=== PATIENT | male | born 1960 | race Caucasian/White ===

== ENCOUNTER 2016-02-13 12:34 | Inpatient (IN) | payer MEDICARE, OTHER ==
--- NOTE | 2016-02-13 13:17 | ED ---
Arrhythmia/Palpitations HPI - General Chief Complaint: Arrhythmia/Palpitations Stated Complaint: Shock from defibrillator Time Seen by Provider: 02/13/16 12:53 Source: patient, RN notes reviewed Mode of arrival: ambulatory - History of Present Illness Initial Comments: This is a 55-year-old male with a history of heart disease and a defibrillator who states his defibrillator went off suddenly this morning. He had no premonition no dizziness fevers chills nausea vomiting sweats he states he also has been having left ear pain and goes to his jaw. The past 2 days. He has a slight cough. He also states that his defibrillator also went off 8 days ago. After the discharge a days ago he did not seek medical evaluation. He states he only other time it went off was right after he got in 2012 at that time he had be readjusted. - Related Data Home Medications Medication Instructions Recorded Confirmed Aspirin 325 mg PO DAILY 06/23/13 02/13/16 Digoxin [Lanoxin] 125 mcg PO QAM 06/23/13 02/13/16 Furosemide [Lasix] 20 mg PO QAM 06/23/13 02/13/16 HYDROcodone/APAP 7.5-325MG [[place] 1 tab PO QID PRN 06/23/13 02/13/16 7.5-325] Metoprolol Tartrate [Lopressor] 150 mg PO BID 06/23/13 02/13/16 Nitroglycerin Sl Tabs [Nitrostat] 0.4 mg SUBLINGUAL Q5M PRN 06/23/13 02/13/16 Omeprazole [PriLOSEC] 20 mg PO BID 06/23/13 02/13/16 Potassium Chloride [K-Tab ER] 10 meq PO QAM 06/23/13 02/13/16 Gabapentin [Neurontin] 300 mg PO QID 10/12/15 02/13/16 Isosorbide Mononitrate ER [Imdur] 30 mg PO QAM 10/12/15 02/13/16 tiZANidine [Zanaflex] 2 mg PO TID 10/12/15 02/13/16 Ibuprofen [Motrin] 400 mg PO Q6HR PRN 02/13/16 02/13/16 Lisinopril [Zestril] 5 mg PO DAILY 02/13/16 02/13/16 Rosuvastatin Calcium [Crestor] 40 mg PO HS 02/13/16 02/13/16 Allergies Allergy/AdvReac Type Severity Reaction Status Date / Time ranitidine HCl [From Zantac] Allergy Itching Verified 02/13/16 13:06 Review of Systems ROS Statement: Those systems with pertinent positive or pertinent negative responses have been documented in the HPI. ROS Other: All systems not noted in ROS Statement are negative. Past Medical History Past Medical History: GERD/Reflux, Musculoskeletal Disorder, Osteoarthritis (OA) Additional Past Medical History / Comment(s): DDD, CHRONIC BACK PAIN, CAN'T WALK LONG DISTANCES. History of Any Multi-Drug Resistant Organisms: None Reported Past Surgical History: AICD, Heart Catheterization With Stent Additional Past Surgical History / Comment(s): 10/20/15 posterior lateral decompression and fusion transforaminal lumbar interbody fusion L4-5, L5- [id number] surgical hx: eye surg (CROSSED EYED). AICD: [employer], MOD#E141 , SE#[id number]. Past Anesthesia/Blood Transfusion Reactions: No Reported Reaction Date of Last Stent Placement:: 2011 Type of Cardiac Device: AICD Device Placement Date:: 2012 Past Psychological History: No Psychological Hx Reported Additional Psychological History / Comment(s): Pt has a crow and grandson staying with him temporarily. He does not drive, he has friends and family take him to appts. He is otherwise indepedent. Smoking Status: Current every day smoker Past Alcohol Use History: Occasional Additional Past Alcohol Use History / Comment(s): SMOKED FOR 40 YRS, 1PPD Past Drug Use History: None Reported - Past Family History Mother Family Medical History: No Reported History Additional Family Medical History / Comment(s): Mother of a brain aneurysm rupture in her 50's Father Family Medical History: CVA/TIA Additional Family Medical History / Comment(s): Father of a CVA. General Exam - General Exam Comments Initial Comments: This is a well-developed well-nourished awake alert oriented 3 male General appearance: alert, in no apparent distress Head exam: Present: atraumatic, normocephalic, normal inspection Eye exam: Present: normal appearance, PERRL, EOMI. Absent: scleral icterus, conjunctival injection, periorbital swelling ENT exam: Present: mucous membranes moist, other (Evaluation of the left ear reveals some fluid behind the left tympanic membrane right one appears be within normal limits.) Neck exam: Present: normal inspection. Absent: tenderness, meningismus, lymphadenopathy Respiratory exam: Present: normal lung sounds bilaterally. Absent: respiratory distress, wheezes, rales, rhonchi, stridor Cardiovascular Exam: Present: regular rate, normal rhythm, normal heart sounds. Absent: systolic murmur, diastolic murmur, rubs, gallop, clicks GI/Abdominal exam: Present: soft, normal bowel sounds. Absent: distended, tenderness, guarding, rebound, rigid Extremities exam: Present: normal inspection, full ROM, normal capillary refill. Absent: tenderness, pedal edema, joint swelling, calf tenderness Back exam: Present: normal inspection Neurological exam: Present: alert, oriented X3, CN II-XII intact Psychiatric exam: Present: normal affect, normal mood Skin exam: Present: warm, dry, intact, normal color. Absent: rash Course Vital Signs 02/13/16 02/13/16 02/13/16 12:41 12:54 13:28 Temperature 98.7 F Pulse Rate 71 77 Pulse Rate [ 101 H Agency Cashier ] Respiratory 18 Rate Blood Pressure 135/93 159/88 O2 Sat by Pulse 97 Oximetry 02/13/16 02/13/16 02/13/16 13:32 14:02 14:32 Temperature Pulse Rate 94 100 84 Pulse Rate [ Agency Cashier ] Respiratory Rate Blood Pressure 178/119 130/62 140/78 O2 Sat by Pulse 98 96 97 Oximetry 02/13/16 15:32 Temperature Pulse Rate 90 Pulse Rate [ Agency Cashier ] Respiratory Rate Blood Pressure 133/89 O2 Sat by Pulse 97 Oximetry - Reevaluation(s) Reevaluation #1: 02/13/16 16:17 The patient was noted to be still in atrial fibrillation. He did receive an extra Lanoxin. The patient's defibrillator was interrogated. There was evidence that he did have a cardioversion done on new years which he converted back to normal sinus rhythm this time it did not. Reevaluation #2: 02/13/16 16:17 I did discuss the findings with the defibrillator sterile technician as well as with Dr. Sotelo. Patient be placed on a Cordarone drip after bolus. Will be admitted. I did discuss the findings with . EKG Findings - EKG Results: EKG: interpreted by ERMD (No definite acute changes. The rate was 111 QRS of 110 daily since QTC of 352/478. Atrial fibrillation) Medical Decision Making - Lab Data Result diagrams: 02/13/16 13:25 02/13/16 13:25 Lab Results 02/13/16 02/13/16 02/13/16 Range/Units 13:25 13:25 13:25 WBC 10.8 H (3.8-10.6) k/uL RBC 5.07 (4.30-5.90) m/uL Hgb 15.8 (13.0-17.5) gm/dL Hct 47.9 (39.0-53.0) % MCV 94.3 (80.0-100.0) fL MCH 31.2 (25.0-35.0) pg MCHC 33.1 (31.0-37.0) g/dL RDW 14.1 (11.5-15.5) % Plt Count 213 (150-450) k/uL Neutrophils % 58 % Lymphocytes % 29 % Monocytes % 6 % Eosinophils % 4 % Basophils % 0 % Neutrophils # 6.3 (1.3-7.7) k/uL Lymphocytes # 3.1 (1.0-4.8) k/uL Monocytes # 0.7 (0-1.0) k/uL Eosinophils # 0.4 (0-0.7) k/uL Basophils # 0.0 (0-0.2) k/uL PT (9.0-12.0) sec INR (<1.1) APTT (22.0-30.0) sec Sodium 144 (137-145) mmol/L Potassium 4.3 (3.5-5.1) mmol/L Chloride 110 H (98-107) mmol/L Carbon Dioxide 25 (22-30) mmol/L Anion Gap 9 mmol/L BUN 11 (9-20) mg/dL Creatinine 0.90 (0.66-1.25) mg/dL Est GFR (MDRD) Af Amer >60 (>60 ml/min/1.73 sqM) Est GFR (MDRD) Non-Af >60 (>60 ml/min/1.73 sqM) Glucose 105 H (74-99) mg/dL Calcium 9.4 (8.4-10.2) mg/dL Magnesium 1.7 (1.6-2.3) mg/dL Total Bilirubin 0.6 (0.2-1.3) mg/dL AST 19 (17-59) U/L ALT 34 (21-72) U/L Alkaline Phosphatase 157 H (38-126) U/L Total Creatine Kinase 95 (55-170) U/L CK-MB (CK-2) 1.1 (0.0-2.4) ng/mL CK-MB (CK-2) Rel Index 1.2 Troponin I 0.017 (0.000-0.034) ng/mL Total Protein 6.5 (6.3-8.2) g/dL Albumin 3.7 (3.5-5.0) g/dL Digoxin <0.4 ng/mL 02/13/16 Range/Units 13:25 WBC (3.8-10.6) k/uL RBC (4.30-5.90) m/uL Hgb (13.0-17.5) gm/dL Hct (39.0-53.0) % MCV (80.0-100.0) fL MCH (25.0-35.0) pg MCHC (31.0-37.0) g/dL RDW (11.5-15.5) % Plt Count (150-450) k/uL Neutrophils % % Lymphocytes % % Monocytes % % Eosinophils % % Basophils % % Neutrophils # (1.3-7.7) k/uL Lymphocytes # (1.0-4.8) k/uL Monocytes # (0-1.0) k/uL Eosinophils # (0-0.7) k/uL Basophils # (0-0.2) k/uL PT 10.0 (9.0-12.0) sec INR 1.0 (<1.1) APTT 24.9 (22.0-30.0) sec Sodium (137-145) mmol/L Potassium (3.5-5.1) mmol/L Chloride (98-107) mmol/L Carbon Dioxide (22-30) mmol/L Anion Gap mmol/L BUN (9-20) mg/dL Creatinine (0.66-1.25) mg/dL Est GFR (MDRD) Af Amer (>60 ml/min/1.73 sqM) Est GFR (MDRD) Non-Af (>60 ml/min/1.73 sqM) Glucose (74-99) mg/dL Calcium (8.4-10.2) mg/dL Magnesium (1.6-2.3) mg/dL Total Bilirubin (0.2-1.3) mg/dL AST (17-59) U/L ALT (21-72) U/L Alkaline Phosphatase (38-126) U/L Total Creatine Kinase (55-170) U/L CK-MB (CK-2) (0.0-2.4) ng/mL CK-MB (CK-2) Rel Index Troponin I (0.000-0.034) ng/mL Total Protein (6.3-8.2) g/dL Albumin (3.5-5.0) g/dL Digoxin ng/mL - Radiology Data Radiology results: report reviewed (X-rays were reviewed no acute findings.), image reviewed Critical Care Time Critical Care Time: Yes Critical Care Time: 39 minutes of time which included initial history physical lab and x-ray orders. Reevaluation the patient several occasions. Discussion with the defibrillator sterile technician as well as discussion with the admitting physician and the field software engineer. Initial admission orders and documentation the above. Disposition Clinical Impression: Atrial fibrillation, rapid, Defibrillator discharge Disposition: ADMITTED IP TO THIS HOSP Condition: Stable
--- NOTE | 2016-02-13 13:43 | XR ---
EXAMINATION TYPE: XR chest 2V DATE OF EXAM: 02/13/2016 1:37 PM COMPARISON: 09/28/2015 HISTORY: Dysrhythmia FINDINGS: The lungs are clear and there is no pneumothorax, pleural effusion, or focal pneumonia. Cardiac juanis ce noted. There is mild cardiomegaly. Hyperinflation suggests COPD. Degenerative change of the spine noted. Tiny calcified granuloma suspected on the lateral view overlying the heart. No overt failure. Arthropathy of the shoulder. IMPRESSION: 1. COPD
[2016-02-13 13:47] LABS: ALT 34 U/L (21-72); AST 19 U/L (17-59); Alkaline Phosphatase 157 U/L (38-126); Anion Gap 9 mmol/L; Blood Urea Nitrogen 11 mg/dL (9-20); Calcium 9.4 mg/dL (8.4-10.2); Carbon Dioxide 25 mmol/L (22-30); Chloride 110 mmol/L (98-107); Digoxin <0.4 ng/mL; Glucose 105 mg/dL (74-99); Magnesium 1.7 mg/dL (1.6-2.3); Non-African American GFR(MDRD) >60 (>60 ml/min/1.73 sqM); Potassium 4.3 mmol/L (3.5-5.1); Sodium 144 mmol/L (137-145); Total Bilirubin 0.6 mg/dL (0.2-1.3); Total Protein 6.5 g/dL (6.3-8.2)
[2016-02-13 13:48] LABS: Basophils % (A) 0 %; CH 31.6; CHCM 33.6; Eosinophils # (A) 0.4 k/uL (0-0.7); Eosinophils % (A) 4 %; HCT 47.9 % (39.0-53.0); HDW 2.59; HGB 15.8 gm/dL (13.0-17.5); Luc # (Auto) 0.33; Luc % (Auto) 3; Lymphocytes # (A) 3.1 k/uL (1.0-4.8); Lymphocytes % (A) 29 %; MCH 31.2 pg (25.0-35.0); MCHC 33.1 g/dL (31.0-37.0); MCV 94.3 fL (80.0-100.0); Mean Platelet Volume 9.7; Monocytes # (A) 0.7 k/uL (0-1.0); Monocytes % (A) 6 %; Neutrophils # (A) 6.3 k/uL (1.3-7.7); Neutrophils % (A) 58 %; RBC 5.07 m/uL (4.30-5.90); RDW 14.1 % (11.5-15.5); WBC 10.8 k/uL (3.8-10.6); WBC (Perox) 11.25
[2016-02-13 13:53] LABS: Partial Thromboplastin Time 24.9 sec (22.0-30.0)
[2016-02-13 14:05] LABS: Creatine Kinase MB 1.1 ng/mL (0.0-2.4); Troponin I 0.017 ng/mL (0.000-0.034)
[2016-02-13] MEDS ORDERED: DIGOXIN 250 MCG/ML 2 ML AMP IVP ONE (14:55)
[2016-02-13] MEDS ORDERED: KETOROLAC 30 MG/ML 1 ML VIAL IVP STA (15:21)
[2016-02-13] MEDS ORDERED: AMIODARONE 450 MG in DEXTROSE 5% IN WATER 250 ML IV ONE ×2 (16:13)
[2016-02-13] MEDS ORDERED: DEXTROSE 5% IN WATER 100 ML with AMIODARONE 150 MG IV ONE (16:13)
[2016-02-13] MEDS ORDERED: NALOXONE 0.4 MG/ML 1 ML VIAL IV PRN (16:34)
[2016-02-13] MEDS ORDERED: NITROGLYCERIN SL TABS 0.4 MG TAB SUBLINGUAL PRN (16:37)
[2016-02-13] MEDS ORDERED: HEPARIN SODIUM,PORCINE 5,000 UNIT/ML 1 ML VIAL IV ONE (16:38)
[2016-02-13] MEDS ORDERED: HEPARIN SODIUM,PORCINE/D5W PMX 25,000 UNIT in DEXTROSE/WATER 1 500ML.BAG IV SCH (16:45)
[2016-02-13] MEDS: SODIUM CHLORIDE 0.9% 1,000 ML IV SCH (17:16)
[2016-02-13 18:43] VITALS: BMI 26.4
[2016-02-13] MEDS: PANTOPRAZOLE 40 MG TABLET PO SCH (19:05)
[2016-02-13] MEDS: GABAPENTIN 300 MG CAP PO SCH ×2 (19:05→20:23)
[2016-02-13] MEDS: ATORVASTATIN 80 MG TAB PO SCH (20:23)
[2016-02-13] MEDS: METOPROLOL TARTRATE 50 MG TAB PO SCH (20:23)
[2016-02-13 21:17] LABS: Creatine Kinase MB 1.2 ng/mL (0.0-2.4); Troponin I 0.023 ng/mL (0.000-0.034)
[2016-02-14] MEDS: HYDROcodone/APAP 7.5-325MG 1 EACH TAB PO PRN ×2 (00:30→15:03)
[2016-02-14] MEDS: AMIODARONE 450 MG in DEXTROSE 5% IN WATER 250 ML IV SCH ×4 (02:04→17:02)
[2016-02-14 02:21] LABS: Creatine Kinase MB 1.1 ng/mL (0.0-2.4); Troponin I 0.021 ng/mL (0.000-0.034)
[2016-02-14] MEDS: PANTOPRAZOLE 40 MG TABLET PO SCH ×2 (06:30→17:09)
[2016-02-14] MEDS ORDERED: HEPARIN SODIUM,PORCINE 5,000 UNIT/ML 1 ML VIAL IV PRN (06:59)
--- NOTE | 2016-02-14 08:57 | P.CRDCN ---
History of Present Illness Consult date: 02/14/16 Requesting physician: Abdi Leblanc Consult reason: atrial fibrillation Chief complaint: AICD discharge History of present illness: This is a 55-year-old gentleman who follows regularly with Dr. Sotelo in the office. He has a known history of coronary artery disease with prior circumflex stent in 2007 ,RCA stent in 2007, circumflex stent in 2009 , and RCA stent in 2011, most recent cardiac catheterization was performed in June 2013 at that time patient was found to have moderate disease in the mid LAD at the origin of the diagonal and the diagonal itself shows 95% stenosis. The stent in the right coronary artery was patent circumflex free of any occlusive disease and maximum medical therapy was advised at that time. If the patient continued to have symptoms revascularization at that time would be considered. History also of hypertension, hyperlipidemia, ischemic cardio myopathy with prior AICD implantation. The patient presents to the hospital on this occasion following discharge from his AICD. Patient states he was standing up just making some soup and without warning the AICD fired. He does state that on Sunday of last week the AICD discharged as well. The patient has a [employer]'s device, device was interrogated which revealed several episodes of nonsustained ventricular tachycardia and ventricular fibrillation with several ATP therapies., It also shows that the patient received AICD shock February 04February 12 at 1:00pm. Laboratory data on admission was reviewed, WBC 10.8, potassium 4.3, magnesium level I.7. Troponins 0.017, 0.023, 0.021. EKG on admission here showed atrial fibrillation with a rapid ventricular response, patient was initiated on IV amiodarone and IV heparin. A. fib is new for the patient. Overall the patient states he's been doing quite well at home, he had a back surgery performed in October of last year and has been doing well from that standpoint as well. He denies any recent chest discomfort, breathing has been stable, no palpitations. Past Medical History Past Medical History: GERD/Reflux, Musculoskeletal Disorder, Osteoarthritis (OA) Additional Past Medical History / Comment(s): DDD, CHRONIC BACK PAIN, CAN'T WALK LONG DISTANCES. History of Any Multi-Drug Resistant Organisms: None Reported Past Surgical History: AICD, Heart Catheterization With Stent Additional Past Surgical History / Comment(s): 10/20/15 posterior lateral decompression and fusion transforaminal lumbar interbody fusion L4-5, L5- [id number] surgical hx: eye surg (CROSSED EYED). AICD: [employer], MOD#E141 , SE#[id number]. Past Anesthesia/Blood Transfusion Reactions: No Reported Reaction Date of Last Stent Placement:: 2011 Type of Cardiac Device: AICD Device Placement Date:: 2012 Past Psychological History: No Psychological Hx Reported Additional Psychological History / Comment(s): Pt has a crow and grandson staying with him temporarily. He does not drive, he has friends and family take him to appts. He is otherwise indepedent. Smoking Status: Current every day smoker Past Alcohol Use History: Occasional Additional Past Alcohol Use History / Comment(s): SMOKED FOR 40 YRS, 1PPD Past Drug Use History: None Reported - Past Family History Mother Family Medical History: No Reported History Additional Family Medical History / Comment(s): Mother of a brain aneurysm rupture in her 50's Father Family Medical History: CVA/TIA Additional Family Medical History / Comment(s): Father of a CVA. Medications and Allergies Home Medications Medication Instructions Recorded Confirmed Type Aspirin 325 mg PO DAILY 06/23/13 02/13/16 History Digoxin [Lanoxin] 125 mcg PO QAM 06/23/13 02/13/16 History Furosemide [Lasix] 20 mg PO QAM 06/23/13 02/13/16 History HYDROcodone/APAP 7.5-325MG [[place] 1 tab PO QID PRN 06/23/13 02/13/16 History 7.5-325] Metoprolol Tartrate [Lopressor] 150 mg PO BID 06/23/13 02/13/16 History Nitroglycerin Sl Tabs [Nitrostat] 0.4 mg SUBLINGUAL Q5M PRN 06/23/13 02/13/16 History Omeprazole [PriLOSEC] 20 mg PO BID 06/23/13 02/13/16 History Potassium Chloride [K-Tab ER] 10 meq PO QAM 06/23/13 02/13/16 History Gabapentin [Neurontin] 300 mg PO QID 10/12/15 02/13/16 History Isosorbide Mononitrate ER [Imdur] 30 mg PO QAM 10/12/15 02/13/16 History tiZANidine [Zanaflex] 2 mg PO TID 10/12/15 02/13/16 History Ibuprofen [Motrin] 400 mg PO Q6HR PRN 02/13/16 02/13/16 History Lisinopril [Zestril] 5 mg PO DAILY 02/13/16 02/13/16 History Rosuvastatin Calcium [Crestor] 40 mg PO HS 02/13/16 02/13/16 History Allergies Allergy/AdvReac Type Severity Reaction Status Date / Time ranitidine HCl [From Zantac] Allergy Itching Verified 02/13/16 13:06 Physical Exam Vitals: Vital Signs Temp Pulse Pulse Resp BP BP Pulse Ox 02/14/16 04:00 67 16 139/84 95 02/14/16 00:00 61 16 134/73 97 02/13/16 20:00 98.5 F 88 16 130/79 98 02/13/16 18:28 97.4 F L 60 16 137/71 97 02/13/16 17:47 98.1 F 71 18 124/57 96 Intake and Output 02/13/16 02/14/16 02/14/16 22:59 06:59 14:59 Intake Total 240 1022.664 Output Total 300 500 Balance -60 522.664 Intake: Intake, IV Titration 482.664 Amount Amiodarone 450 mg In 208.331 Dextrose 5% in Water 250 ml @ 1 MG/MIN 34.53 mls/ hr IV .Q7H31M ONE Rx#: [id number] Heparin Sodium,Porcine/ 274.333 D5w Pmx 25,000 unit In Dextrose/Water 1 500ml. bag @ 11.31 UNITS/KG/HR 20 mls/hr IV .Q24H [facility] Rx #:[id number] Oral 240 540 Output: Urine 300 500 Other: Voiding Method Toilet Weight 88.451 kg 90.1 kg PHYSICAL EXAMINATION: HEENT: Head is atraumatic, normocephalic. Pupils equal, round. Neck is supple. There is no elevated jugular venous pressure. HEART EXAMINATION: Heart S1, S2 normal. No murmur or gallop heard. CHEST EXAMINATION: Lungs are clear to auscultation and precussion. No chest wall tenderness is noted on palpation or with deep breathing. ABDOMEN: Soft, nontender. Bowel sounds are heard. No organomegaly noted. EXTREMITIES: 2+ peripheral pulses with no evidence of peripheral edema and no calf tenderness noted. NEUROLOGIC patient is awake, alert and oriented -3. . Results 02/13/16 13:25 02/13/16 13:25 Cardiac Enzymes 02/13/16 02/14/16 Range/Units 20:28 01:23 CK-MB (CK-2) 1.2 1.1 (0.0-2.4) ng/mL Troponin I 0.023 0.021 (0.000-0.034) ng/mL Coagulation 02/14/16 Range/Units 05:54 APTT 29.1 (22.0-30.0) sec Current Medications Generic Name Dose Route Start Last Admin Trade Name Freq PRN Reason Stop Dose Admin Acetaminophen/Hydrocodone Bitart 1 each 02/13/16 16:37 02/14/16 00:30 [place] 7.5-325 PO 1 each QID PRN Administration Pain Aspirin 81 mg 02/14/16 09:00 Aspirin PO DAILY [facility] Atorvastatin Calcium 80 mg 02/13/16 21:00 02/13/16 20:23 Lipitor PO 80 mg HS [facility] Administration Digoxin 125 mcg 02/14/16 09:00 Lanoxin PO QAM [facility] Furosemide 20 mg 02/14/16 09:00 Lasix PO QAM [facility] Gabapentin 300 mg 02/13/16 18:00 02/13/16 20:23 Neurontin PO 300 mg QID [facility] Administration Heparin Sodium (Porcine) 0 unit 02/14/16 06:59 Heparin IV PER PROTOCOL PRN Low PTT Protocol Heparin Sodium/Dextrose 25,000 500 mls @ 20 mls/hr 02/13/16 16:45 02/14/16 06 :58 unit/ IV Solution IV 14.3 units/kg/hr .Q24H [facility] 25.29 mls/hr Protocol Titration 11.31 UNITS/KG/HR Sodium Chloride 1,000 mls @ 20 mls/hr 02/13/16 16:45 02/13/16 17:16 Saline 0.9% IV 20 mls/hr .Q24H [facility] Administration Amiodarone HCl 450 mg/ 259 mls @ 17.26 mls/hr 02/14/16 00:45 02/14/16 02:04 Dextrose/Water IV 02/15/16 17:00 0.5 mg/min .Q15H1M [facility] 17.26 mls/hr Protocol Administration 0.5 MG/MIN Magnesium Sulfate/Dextrose 1 100 mls @ 100 mls/hr 02/14/16 08:30 gm/ IV Solution IVPB 02/14/16 10:29 Q1H [facility] Isosorbide Mononitrate 30 mg 02/14/16 09:00 Imdur PO QAM [facility] Lisinopril 5 mg 02/14/16 09:00 Zestril PO DAILY [facility] Metoprolol Tartrate 150 mg 02/13/16 21:00 02/13/16 20:23 Lopressor PO 150 mg BID [facility] Administration Naloxone HCl 0.2 mg 02/13/16 16:34 Narcan IV Q2M PRN Opioid Reversal Nitroglycerin 0.4 mg 02/13/16 16:37 Nitrostat SUBLINGUAL Q5M PRN Chest Pain Pantoprazole Sodium 40 mg 02/13/16 18:00 02/14/16 06:30 Protonix PO 40 mg AC-BID [facility] Administration Potassium Chloride 10 meq 02/14/16 09:00 K-Dur 10 PO QAM [facility] Tizanidine HCl 2 mg 02/13/16 22:00 02/13/16 20:23 Zanaflex PO 2 mg TID [facility] Administration Intake and Output 02/13/16 02/14/16 02/14/16 22:59 06:59 14:59 Intake Total 240 1022.664 Output Total 300 500 Balance -60 522.664 Intake: Intake, IV Titration 482.664 Amount Amiodarone 450 mg In 208.331 Dextrose 5% in Water 250 ml @ 1 MG/MIN 34.53 mls/ hr IV .Q7H31M ONE Rx#: [id number] Heparin Sodium,Porcine/ 274.333 D5w Pmx 25,000 unit In Dextrose/Water 1 500ml. bag @ 11.31 UNITS/KG/HR 20 mls/hr IV .Q24H [facility] Rx #:[id number] Oral 240 540 Output: Urine 300 500 Other: Voiding Method Toilet Weight 88.451 kg 90.1 kg EKG Interpretations (text) EKG shows atrial fibrillation with a rapid ventricular response Assessment and Plan Plan: Assessment and plan #1 atrial fibrillation with rapid ventricular response, appears to be of new onset. Patient is currently on IV amiodarone and IV heparin. #2 AICD discharge, device interrogation shows vessels of ventricular tachycardia , and ventricular fibrillation, AICD shock 2. #3 ischemic cardiomyopathy status post AICD implant #4 known history of coronary artery disease with multiple stent placements # 5 hypertension #6 hyperlipidemia #7 nicotine dependence #8 hypomagnesemia Plan We will continue the amiodarone IV per protocol, continue IV heparin, we'll check to see if the patient has coverage for one of the newer anticoagulants, then we will initiate this. Replace magnesium. Obtain echocardiogram with Doppler study. Most recent echocardiogram with Doppler study was performed in 2013 which revealed an ejection fraction of 35%. Further recommendations to follow. DNP note has been reviewed, I agree with a documented findings and plan of care. Patient was seen and examined.
[2016-02-14] MEDS ORDERED: ASPIRIN 325 MG TAB PO SCH (09:00)
[2016-02-14] MEDS: DIGOXIN 125 MCG TAB PO SCH (09:29)
[2016-02-14] MEDS: MAGNESIUM SULFATE-D5W PMX 1 GM in DEXTROSE/WATER 1 100ML.BAG IVPB SCH ×2 (09:29→11:15)
[2016-02-14] MEDS: ISOSORBIDE MONONITRATE ER 30 MG TAB.ER.24H PO SCH (09:30)
[2016-02-14] MEDS: METOPROLOL TARTRATE 50 MG TAB PO SCH ×2 (09:30→20:36)
[2016-02-14] MEDS: GABAPENTIN 300 MG CAP PO SCH ×4 (09:30→20:37)
[2016-02-14] MEDS: LISINOPRIL 5 MG TAB PO SCH (09:30)
[2016-02-14] MEDS: POTASSIUM CHLORIDE ER 10 MEQ TAB.ER.PRT PO SCH (09:30)
[2016-02-14] MEDS: FUROSEMIDE 20 MG TAB PO SCH (09:30)
[2016-02-14] MEDS: ASPIRIN 81 MG CHEW PO SCH (09:36)
[2016-02-14] MEDS: ACETAMINOPHEN TAB 325 MG TAB PO PRN (09:50)
--- NOTE | 2016-02-14 11:47 | ECHOF ---
Referral Reason:afib MEASUREMENTS -------- HEIGHT: 182.9 cm WEIGHT: 89.8 kg BP: 139/84 RVIDd: 2.5 cm (< 3.3) IVSd: 1.2 cm (0.6 - 1.1) LVIDd: 5.8 cm (3.9 - 5.3) LVPWd: 1.5 cm (0.6 - 1.1) IVSs: 1.5 cm LVIDs: 5.0 cm LVPWs: 1.3 cm LA Diam: 4.2 cm (2.7 - 3.8) LAESV Index (A-L): 33.05 ml/m Ao Diam: 3.7 cm (2.0 - 3.7) AV Cusp: 2.3 cm (1.5 - 2.6) LA Diam: 4.4 cm (2.7 - 3.8) MV EXCURSION: 13.883 mm (> 18.000) MV EF SLOPE: 65 mm/s (70 - 150) EPSS: 1.5 cm MV E Ace: 0.98 m/s MV DecT: 208 ms MV A Ace: 0.59 m/s MV E/A Ratio: 1.65 RAP: 5.00 mmHg RVSP: 24.64 mmHg FINDINGS -------- Paced rhythm. This was a technically adequate study. There is mild concentric left ventricular hypertrophy. Overall left ventricular systolic function is mild-moderately impaired with, an EF between 40 - 45 %. Inferiorlateral Hypokinesis Basal Septal Hypokinesis The right ventricle is normal in size. LA is midly dilated 29-33ml/m2. The right atrial size is normal. There is mild aortic valve sclerosis. There is no evidence of aortic regurgitation. Mild mitral annular calcification present. Mild mitral regurgitation is present. Mild tricuspid regurgitation present. There is no evidence of pulmonary hypertension. The right ventricular systolic pressure, as measured by Doppler, is 24.64mmHg. Trace/mild (physiologic) pulmonic regurgitation. The aortic root size is normal. There is no pericardial effusion. CONCLUSIONS -------- 1. There is mild concentric left ventricular hypertrophy. 2. There is no evidence of pulmonary hypertension. 3. The right ventricular systolic pressure, as measured by Doppler, is 24.64mmHg. 4. Trace/mild (physiologic) pulmonic regurgitation. 5. The aortic root size is normal. 6. There is no pericardial effusion. 7. Overall left ventricular systolic function is mild-moderately impaired with, an EF between 40 - 45 %. 8. Inferiorlateral Hypokinesis 9. Basal Septal Hypokinesis 10. LA is midly dilated 29-33ml/m2. 11. There is mild aortic valve sclerosis. 12. Mild mitral annular calcification present. 13. Mild mitral regurgitation is present. 14. Mild tricuspid regurgitation present. RN TRAINING: Daniela Venegas RDCS
[2016-02-14] MEDS: APIXABAN 5 MG TAB PO SCH ×2 (12:25→20:36)
--- NOTE | 2016-02-14 14:04 | P.HPIM ---
History of Present Illness H&P Date: 02/14/16 Chief Complaint: Discharging of his AICD This is a 55-year-old male with a known history of myocardial infarction, coronary artery disease with cardiac stent, hypertension, hyperlipidemia, ischemic cardiopathy with AICD implantation in 2012. Patient reports that he came into the emergency room after his AICD fired. He was at home in the kitchen making soup when he felt his AICD fire. That was the second time that happened within the last week. He reports that also he felt that on [place]. Patient presented to the emergency room AICD was interrogated and there were several episodes of nonsustained ventricle tachycardia and ventricle fibrillation per cardiology. Patient was admitted to the telemetry floor cardiology was consulted. His EKG had shown atrial fibrillation with rapid ventricular response. This is a new onset for patient. He was started on IV heparin and IV amiodarone in the emergency room. Patient denies any chest pain or shortness of breath. Denies any nausea or vomiting. Denies any dizziness or lightheadedness. He's been having regular bowel movements denies any difficulty urinating. Denies any fevers chills or sweats. Review of Systems Please refer to HPI otherwise unremarkable Past Medical History Past Medical History: GERD/Reflux, Musculoskeletal Disorder, Osteoarthritis (OA) Additional Past Medical History / Comment(s): DDD, CHRONIC BACK PAIN, CAN'T WALK LONG DISTANCES. History of Any Multi-Drug Resistant Organisms: None Reported Past Surgical History: AICD, Heart Catheterization With Stent Additional Past Surgical History / Comment(s): 10/20/15 posterior lateral decompression and fusion transforaminal lumbar interbody fusion L4-5, L5- [id number] surgical hx: eye surg (CROSSED EYED). AICD: [employer], MOD#E141 , SE#[id number]. Past Anesthesia/Blood Transfusion Reactions: No Reported Reaction Date of Last Stent Placement:: 2011 Type of Cardiac Device: AICD Device Placement Date:: 2012 Past Psychological History: No Psychological Hx Reported Additional Psychological History / Comment(s): Pt has a crow and grandson staying with him temporarily. He does not drive, he has friends and family take him to appts. He is otherwise indepedent. Smoking Status: Current every day smoker Past Alcohol Use History: Occasional Additional Past Alcohol Use History / Comment(s): SMOKED FOR 40 YRS, 1PPD Past Drug Use History: None Reported - Past Family History Mother Family Medical History: No Reported History Additional Family Medical History / Comment(s): Mother of a brain aneurysm rupture in her 50's Father Family Medical History: CVA/TIA Additional Family Medical History / Comment(s): Father of a CVA. Medications and Allergies Home Medications Medication Instructions Recorded Confirmed Type Aspirin 325 mg PO DAILY 06/23/13 02/13/16 History Digoxin [Lanoxin] 125 mcg PO QAM 06/23/13 02/13/16 History Furosemide [Lasix] 20 mg PO QAM 06/23/13 02/13/16 History HYDROcodone/APAP 7.5-325MG [[place] 1 tab PO QID PRN 06/23/13 02/13/16 History 7.5-325] Metoprolol Tartrate [Lopressor] 150 mg PO BID 06/23/13 02/13/16 History Nitroglycerin Sl Tabs [Nitrostat] 0.4 mg SUBLINGUAL Q5M PRN 06/23/13 02/13/16 History Omeprazole [PriLOSEC] 20 mg PO BID 06/23/13 02/13/16 History Potassium Chloride [K-Tab ER] 10 meq PO QAM 06/23/13 02/13/16 History Gabapentin [Neurontin] 300 mg PO QID 10/12/15 02/13/16 History Isosorbide Mononitrate ER [Imdur] 30 mg PO QAM 10/12/15 02/13/16 History tiZANidine [Zanaflex] 2 mg PO TID 10/12/15 02/13/16 History Ibuprofen [Motrin] 400 mg PO Q6HR PRN 02/13/16 02/13/16 History Lisinopril [Zestril] 5 mg PO DAILY 02/13/16 02/13/16 History Rosuvastatin Calcium [Crestor] 40 mg PO HS 02/13/16 02/13/16 History Allergies Allergy/AdvReac Type Severity Reaction Status Date / Time ranitidine HCl [From Zantac] Allergy Itching Verified 02/13/16 13:06 Physical Exam Vitals: Vital Signs Temp Pulse Pulse Resp BP BP Pulse Ox 02/14/16 11:18 75 17 128/70 97 02/14/16 08:00 98.7 F 73 17 144/75 96 02/14/16 04:00 67 16 139/84 95 02/14/16 00:00 61 16 134/73 97 02/13/16 20:00 98.5 F 88 16 130/79 98 02/13/16 18:28 97.4 F L 60 16 137/71 97 02/13/16 17:47 98.1 F 71 18 124/57 96 Intake and Output 02/13/16 02/14/16 02/14/16 22:59 06:59 14:59 Intake Total 240 1022.664 Output Total 152 984 0722 Balance -60 522.664 -2000 Intake: Intake, IV Titration 482.664 Amount Amiodarone 450 mg In 208.331 Dextrose 5% in Water 250 ml @ 1 MG/MIN 34.53 mls/ hr IV .Q7H31M ONE Rx#: [id number] Heparin Sodium,Porcine/ 274.333 D5w Pmx 25,000 unit In Dextrose/Water 1 500ml. bag @ 11.31 UNITS/KG/HR 20 mls/hr IV .Q24H [facility] Rx #:[id number] Oral 240 540 Output: Urine 381 971 5893 Other: Voiding Method Toilet Toilet Weight 88.451 kg 90.1 kg HEENT left ear redness noted on tympanic membrane Head normocephalic Neck supple Lungs clear to auscultation bilaterally no wheezing or crackles Heart regular rate and rhythm S1-S2, no rub or gallop Abdomen is soft nontender nondistended positive bowel sounds no hepatosplenomegaly Extremities no edema Neuro alert and orientated to 3 Results CBC & Chem 7: 02/13/16 13:25 02/13/16 13:25 Thrombosis Risk Factor Assmnt - Choose All That Apply Any of the Below Risk Factors Present?: Yes Each Factor Represents 1 point: Age 41-60 years Thrombosis Risk Factor Assessment Total Risk Factor Score: 1 Thrombosis Risk Factor Assessment Level: Low Risk Assessment and Plan Plan: 1. AICD discharge: Device interrogated in the emergency room showing nonsustained ventricle tachycardia and ventricle fibrillation. His AICD has fired 21 on February 04 and February 12. Cardiology is following. Echo showing an EF of 40-45% with an inferior lateral hypokinesis and basal septal hypokinesis. Also mild mitral regurgitation and tricuspid regurgitation 2. Atrial fibrillation with rapid ventricular response new onset. Patient started on IV amiodarone and IV heparin in the emergency room. Cardiology has switched him to oral amiodarone and Eliquis 3. Nicotine dependence: Start nicotine patch. Discussed with patient smoking cessation for greater than 3 minutes and less than 10 minutes 4. History of ischemic cardiomyopathy with previous AICD 5. Previous history of myocardial infarction and coronary artery disease with cardiac stent 6. COPD stable no exacerbation 7. Essential hypertension 8. Hyperlipidemia continue statin 9. Chronic back pain with previous back surgery in October [address] Beyer 10. Left otitis media: Start amoxicillin 1 g every 8 hours for 5 days DVT prophylaxis Eliquis and GI prophylaxis Protonix Time with Patient: Greater than 30 (Greater than 50% of the total time spent in counseling and coordination of care.I performed an examination of the patient and discussed their management with the physician Health Management Consultant. I have reviewed the Physician Health Management Consultant's notes and agree with the documented findings and plan of care)
[2016-02-14] MEDS: NICOTINE 21MG/24HR PATCH TRANSDERM SCH (15:04)
[2016-02-14] MEDS: AMOXICILLIN 500 MG CAP PO SCH ×2 (15:08→22:55)
[2016-02-14] MEDS: AMIODARONE 200 MG TAB PO SCH ×2 (17:03→20:36)
[2016-02-14] MEDS: SODIUM CHLORIDE 0.9% 1,000 ML IV SCH (17:08)
[2016-02-14] MEDS: ATORVASTATIN 80 MG TAB PO SCH (20:36)
[2016-02-15] MEDS: ACETAMINOPHEN TAB 325 MG TAB PO PRN ×4 (04:41→22:44)
[2016-02-15 06:27] LABS: Basophils # (A) 0.1 k/uL (0-0.2); Basophils % (A) 1 %; CH 31.4; CHCM 32.5; Eosinophils # (A) 0.3 k/uL (0-0.7); Eosinophils % (A) 3 %; HCT 45.1 % (39.0-53.0); HDW 2.54; HGB 14.2 gm/dL (13.0-17.5); Luc # (Auto) 0.17; Luc % (Auto) 2; Lymphocytes # (A) 2.4 k/uL (1.0-4.8); Lymphocytes % (A) 23 %; MCH 30.5 pg (25.0-35.0); MCHC 31.5 g/dL (31.0-37.0); MCV 96.9 fL (80.0-100.0); Mean Platelet Volume 10.3; Monocytes # (A) 0.6 k/uL (0-1.0); Monocytes % (A) 5 %; Neutrophils # (A) 7.3 k/uL (1.3-7.7); Neutrophils % (A) 68 %; RBC 4.65 m/uL (4.30-5.90); RDW 14.1 % (11.5-15.5); WBC 10.7 k/uL (3.8-10.6); WBC (Perox) 10.96
[2016-02-15 06:40] LABS: ALT 33 U/L (21-72); AST 19 U/L (17-59); Alkaline Phosphatase 158 U/L (38-126); Anion Gap 10 mmol/L; Blood Urea Nitrogen 8 mg/dL (9-20); Calcium 9.2 mg/dL (8.4-10.2); Carbon Dioxide 27 mmol/L (22-30); Chloride 107 mmol/L (98-107); Glucose 151 mg/dL (74-99); Non-African American GFR(MDRD) >60 (>60 ml/min/1.73 sqM); Potassium 4.3 mmol/L (3.5-5.1); Sodium 144 mmol/L (137-145); Total Bilirubin 0.4 mg/dL (0.2-1.3); Total Protein 6.5 g/dL (6.3-8.2)
[2016-02-15] MEDS: PANTOPRAZOLE 40 MG TABLET PO SCH ×2 (06:49→17:10)
[2016-02-15] MEDS: AMOXICILLIN 500 MG CAP PO SCH ×3 (08:21→21:43)
[2016-02-15] MEDS: DIGOXIN 125 MCG TAB PO SCH (08:22)
[2016-02-15] MEDS: ASPIRIN 81 MG CHEW PO SCH (08:22)
[2016-02-15] MEDS: AMIODARONE 200 MG TAB PO SCH ×2 (08:22→21:43)
[2016-02-15] MEDS: APIXABAN 5 MG TAB PO SCH ×2 (08:22→21:43)
[2016-02-15] MEDS: METOPROLOL TARTRATE 50 MG TAB PO SCH ×2 (08:23→21:42)
[2016-02-15] MEDS: LISINOPRIL 5 MG TAB PO SCH (08:23)
[2016-02-15] MEDS: FUROSEMIDE 20 MG TAB PO SCH (08:23)
[2016-02-15] MEDS: GABAPENTIN 300 MG CAP PO SCH ×4 (08:23→21:41)
[2016-02-15] MEDS: ISOSORBIDE MONONITRATE ER 30 MG TAB.ER.24H PO SCH (08:24)
[2016-02-15] MEDS: POTASSIUM CHLORIDE ER 10 MEQ TAB.ER.PRT PO SCH (08:25)
[2016-02-15] MEDS: NICOTINE 21MG/24HR PATCH TRANSDERM SCH (08:25)
--- NOTE | 2016-02-15 13:03 | P.PN ---
Subjective Principal diagnosis: AICD discharge, atrial fibrillation was rapid ventricular response Patient is a 55-year-old male admitted to [facility] through emergency room after presenting after AICD discharge he had evidence of atrial fibrillation was rapid ventricular response he was admitted to telemetry floor. He was started on IV amiodarone and IV heparin. Today he is back in normal sinus rhythm He denies any complaints at this time Objective - Vital Signs Vital signs: Vital Signs Temp 97.6 F 02/15/16 08:00 Pulse 81 02/15/16 08:00 Resp 17 02/15/16 11:12 BP 130/97 02/15/16 11:12 Pulse Ox 95 02/15/16 08:00 Intake & Output 02/14/16 02/15/16 02/15/16 18:59 06:59 18:59 Intake Total 380 120 240 Output Total 2000 1200 Balance -1620 -1080 240 Weight 90.6 kg Intake: Oral 380 120 240 Output: Urine 1999 1200 Other: Voiding Method Toilet Toilet Toilet - Exam HEENT head normocephalic and atraumatic Neck is supple no JVD no goiter no lymphadenopathy Chest exam is clear to auscultation no crackles no wheezing Cardiac exam reveals regular heart sounds no gallops no murmurs Abdomen is soft nontender no organomegaly Extremity exam reveals no edema no cyanosis or clubbing - Labs CBC & Chem 7: 02/15/16 05:56 02/15/16 05:56 Labs: Abnormal Lab Results - Last 24 Hours (Table) 02/14/16 02/15/16 02/15/16 Range/Units 12:41 05:56 05:56 WBC 10.7 H (3.8-10.6) k/uL APTT 30.4 H (22.0-30.0) sec BUN 8 L (9-20) mg/dL Glucose 151 H (74-99) mg/dL Alkaline Phosphatase 158 H (38-126) U/L Assessment and Plan Plan: #1 status post AICD discharge #2 new onset atrial fibrillation was rapid ventricular response now back in normal sinus rhythm #3 underlying history of ischemic cardiomyopathy #4 known history of coronary artery disease was multiple stent placement #5 hypomagnesemia on presentation #6 underlying history of hypertension and hyperlipidemia #7 tobacco abuse At this time continue to monitor patient is stable possible discharge to home tomorrow
--- NOTE | 2016-02-15 14:56 | P.PN ---
Subjective Principal diagnosis: AICD discharge This is a 55-year-old gentleman who follows regularly with Dr. Sotelo in the office. He has a known history of coronary artery disease with prior circumflex stent in 2007 ,RCA stent in 2007, circumflex stent in 2009 , and RCA stent in 2011, most recent cardiac catheterization was performed in June 2013 at that time patient was found to have moderate disease in the mid LAD at the origin of the diagonal and the diagonal itself shows 95% stenosis. The stent in the right coronary artery was patent circumflex free of any occlusive disease and maximum medical therapy was advised at that time. If the patient continued to have symptoms revascularization at that time would be considered. History also of hypertension, hyperlipidemia, ischemic cardio myopathy with prior AICD implantation. The patient presents to the hospital on this occasion following discharge from his AICD. Patient states he was standing up just making some soup and without warning the AICD fired. He does state that on Sunday of last week the AICD discharged as well. The patient has a [employer]'s device, device was interrogated which revealed several episodes of nonsustained ventricular tachycardia and ventricular fibrillation with several ATP therapies., It also shows that the patient received AICD shock February 04February 12 at 1:00pm. Although the device red V. fib and V. tach, who report that was called the Dr. Sotelo stated that the patient was in atrial fibrillation with rapid ventricular response and that the AICD went off because of that. We will have Dr. Leggett review the strips. At this time, patient is currently in normal sinus rhythm, on amiodarone. Doing very well overall. Echocardiogram with Doppler study revealed an ejection fraction of 40-45%. Objective - Vital Signs Vital signs: Vital Signs Temp 97.6 F 02/15/16 08:00 Pulse 81 02/15/16 08:00 Resp 17 02/15/16 11:12 BP 130/97 02/15/16 11:12 Pulse Ox 95 02/15/16 08:00 Intake & Output 02/14/16 02/15/16 02/15/16 18:59 06:59 18:59 Intake Total 380 120 600 Output Total 2000 1200 Balance -1620 -1080 600 Weight 90.6 kg Intake: Oral 380 120 600 Output: Urine 2000 1200 Other: Voiding Method Toilet Toilet Toilet - Exam PHYSICAL EXAMINATION: HEENT: Head is atraumatic, normocephalic. Pupils equal, round. Neck is supple. There is no elevated jugular venous pressure. HEART EXAMINATION: Heart S1, S2 normal. No murmur or gallop heard. CHEST EXAMINATION: Lungs are clear to auscultation and precussion. No chest wall tenderness is noted on palpation or with deep breathing. ABDOMEN: Soft, nontender. Bowel sounds are heard. No organomegaly noted. EXTREMITIES: 2+ peripheral pulses with no evidence of peripheral edema and no calf tenderness noted. NEUROLOGIC patient is awake, alert and oriented -3. - Labs CBC & Chem 7: 02/15/16 05:56 02/15/16 05:56 Labs: Abnormal Lab Results - Last 24 Hours (Table) 02/15/16 02/15/16 Range/Units 05:56 05:56 WBC 10.7 H (3.8-10.6) k/uL BUN 8 L (9-20) mg/dL Glucose 151 H (74-99) mg/dL Alkaline Phosphatase 158 H (38-126) U/L Assessment and Plan Plan: Assessment and plan #1 atrial fibrillation with rapid ventricular response, appears to be of new onset. Currently in normal sinus rhythm.. #2 AICD discharge, device interrogation shows vessels of ventricular tachycardia , and ventricular fibrillation, AICD shock 2 for atrial fibrillation. #3 ischemic cardiomyopathy status post AICD implant #4 known history of coronary artery disease with multiple stent placements # 5 hypertension #6 hyperlipidemia #7 nicotine dependence #8 hypomagnesemia Plan We will continue the patient on amiodarone 400 mg one tablet by mouth twice a day for one week, then 200 mg by mouth 3 times a day for one week, then 200 mg one tablet by mouth twice a day. He has also been initiated on Eliquis 5 mg one tablet by mouth twice a day. Device interrogation strips will be reviewed by Dr. Sotelo as well. At this time we'll continue with his other medications and plan for possible discharge home in the morning if stable. DNP note has been reviewed, I agree with a documented findings and plan of care. Patient was seen and examined.
[2016-02-15] MEDS: SODIUM CHLORIDE 0.9% 1,000 ML IV SCH (17:08)
[2016-02-15] MEDS: ATORVASTATIN 80 MG TAB PO SCH (21:41)
[2016-02-15] MEDS: HYDROcodone/APAP 7.5-325MG 1 EACH TAB PO PRN (23:51)
[2016-02-16] MEDS: HYDROcodone/APAP 7.5-325MG 1 EACH TAB PO PRN (04:58)
[2016-02-16 06:08] LABS: Basophils # (A) 0.1 k/uL (0-0.2); Basophils % (A) 0 %; CH 31.2; CHCM 32.6; Eosinophils # (A) 0.3 k/uL (0-0.7); Eosinophils % (A) 3 %; HCT 44.1 % (39.0-53.0); HDW 2.61; HGB 14.7 gm/dL (13.0-17.5); Luc # (Auto) 0.28; Luc % (Auto) 2; Lymphocytes # (A) 3.1 k/uL (1.0-4.8); Lymphocytes % (A) 25 %; MCH 32.1 pg (25.0-35.0); MCHC 33.5 g/dL (31.0-37.0); Mean Platelet Volume 9.2; Monocytes # (A) 0.9 k/uL (0-1.0); Monocytes % (A) 7 %; Neutrophils # (A) 7.5 k/uL (1.3-7.7); Neutrophils % (A) 62 %; RBC 4.59 m/uL (4.30-5.90); WBC 12.1 k/uL (3.8-10.6); WBC (Perox) 12.61
[2016-02-16 06:18] LABS: ALT 42 U/L (21-72); AST 22 U/L (17-59); Alkaline Phosphatase 161 U/L (38-126); Anion Gap 12 mmol/L; Blood Urea Nitrogen 7 mg/dL (9-20); Calcium 9.2 mg/dL (8.4-10.2); Carbon Dioxide 27 mmol/L (22-30); Chloride 107 mmol/L (98-107); Glucose 128 mg/dL (74-99); Non-African American GFR(MDRD) >60 (>60 ml/min/1.73 sqM); Potassium 4.5 mmol/L (3.5-5.1); Sodium 146 mmol/L (137-145); Total Bilirubin 0.5 mg/dL (0.2-1.3)
[2016-02-16] MEDS: PANTOPRAZOLE 40 MG TABLET PO SCH (06:39)
[2016-02-16] MEDS: NICOTINE 21MG/24HR PATCH TRANSDERM SCH (08:07)
[2016-02-16] MEDS: AMOXICILLIN 500 MG CAP PO SCH (08:07)
[2016-02-16] MEDS: FUROSEMIDE 20 MG TAB PO SCH (08:08)
[2016-02-16] MEDS: APIXABAN 5 MG TAB PO SCH (08:08)
[2016-02-16] MEDS: ASPIRIN 81 MG CHEW PO SCH (08:08)
[2016-02-16] MEDS: AMIODARONE 200 MG TAB PO SCH (08:08)
[2016-02-16] MEDS: DIGOXIN 125 MCG TAB PO SCH (08:08)
[2016-02-16] MEDS: LISINOPRIL 5 MG TAB PO SCH (08:09)
[2016-02-16] MEDS: GABAPENTIN 300 MG CAP PO SCH ×2 (08:09→12:11)
[2016-02-16] MEDS: ISOSORBIDE MONONITRATE ER 30 MG TAB.ER.24H PO SCH (08:09)
[2016-02-16] MEDS: POTASSIUM CHLORIDE ER 10 MEQ TAB.ER.PRT PO SCH (08:09)
[2016-02-16] MEDS: METOPROLOL TARTRATE 50 MG TAB PO SCH (08:09)
[2016-02-16] MEDS: ACETAMINOPHEN TAB 325 MG TAB PO PRN (08:48)
--- NOTE | 2016-02-16 12:24 | P.PN ---
Subjective Principal diagnosis: AICD discharge This is a 55-year-old gentleman who follows regularly with Dr. Sotelo in the office. He has a known history of coronary artery disease with prior circumflex stent in 2007 ,RCA stent in 2007, circumflex stent in 2009 , and RCA stent in 2011, most recent cardiac catheterization was performed in June 2013 at that time patient was found to have moderate disease in the mid LAD at the origin of the diagonal and the diagonal itself shows 95% stenosis. The stent in the right coronary artery was patent circumflex free of any occlusive disease and maximum medical therapy was advised at that time. If the patient continued to have symptoms revascularization at that time would be considered. History also of hypertension, hyperlipidemia, ischemic cardio myopathy with prior AICD implantation. The patient presents to the hospital on this occasion following discharge from his AICD. Patient states he was standing up just making some soup and without warning the AICD fired. He does state that on Sunday of last week the AICD discharged as well. The patient has a [employer] device, device was interrogated which revealed a discharge for atrial fibrillation with rapid ventricular response. This morning patient is in normal sinus rhythm, he's been up ambulating in the hallway without any difficulty. Eager to be discharged home today. Objective - Vital Signs Vital signs: Vital Signs Temp 98.6 F 02/16/16 08:00 Pulse 121 H 02/16/16 08:00 Resp 14 02/16/16 08:00 BP 136/91 02/16/16 08:00 Pulse Ox 97 02/16/16 04:30 Intake & Output 02/15/16 02/16/16 02/16/16 18:59 06:59 18:59 Intake Total 820 416 Output Total 3400 Balance 820 -3400 416 Weight 90.8 kg Intake: Oral 820 416 Output: Urine 3400 Other: Voiding Method Toilet - Exam PHYSICAL EXAMINATION: HEENT: Head is atraumatic, normocephalic. Pupils equal, round. Neck is supple. There is no elevated jugular venous pressure. HEART EXAMINATION: Heart S1, S2 normal. No murmur or gallop heard. CHEST EXAMINATION: Lungs are clear to auscultation and precussion. No chest wall tenderness is noted on palpation or with deep breathing. ABDOMEN: Soft, nontender. Bowel sounds are heard. No organomegaly noted. EXTREMITIES: 2+ peripheral pulses with no evidence of peripheral edema and no calf tenderness noted. NEUROLOGIC patient is awake, alert and oriented -3. - Labs CBC & Chem 7: 02/16/16 05:53 02/16/16 05:50 Labs: Abnormal Lab Results - Last 24 Hours (Table) 02/16/16 02/16/16 Range/Units 05:50 05:53 WBC 12.1 H (3.8-10.6) k/uL Sodium 146 H (137-145) mmol/L BUN 7 L (9-20) mg/dL Glucose 128 H (74-99) mg/dL Alkaline Phosphatase 161 H (38-126) U/L Assessment and Plan Plan: Assessment and plan #1 atrial fibrillation with rapid ventricular response, appears to be of new onset. Currently in normal sinus rhythm.. #2 AICD discharge, device interrogation shows AICD discharge for A. fib with RVR.. #3 ischemic cardiomyopathy status post AICD implant #4 known history of coronary artery disease with multiple stent placements # 5 hypertension #6 hyperlipidemia #7 nicotine dependence #8 hypomagnesemia Plan We will continue the patient on amiodarone 400 mg one tablet by mouth twice a day for one week, then 200 mg by mouth 3 times a day for one week, then 200 mg one tablet by mouth twice a day. He has also been initiated on Eliquis 5 mg one tablet by mouth twice a day. Patient may be able to be discharged home today. An appointment will be made with Dr. Sotelo in the office post discharge. DNP note has been reviewed, I agree with a documented findings and plan of care. Patient was seen and examined.
[2016-02-16 12:48] VITALS: BP 125/64; PULSE 95; RESP 16; TEMP 98.4
--- NOTE | 2016-02-16 13:01 | P.DS ---
Providers Date of admission: 02/13/16 16:34 Expected date of discharge: 02/16/16 Attending physician: Abdi Leblanc Primary care physician: Shanti Dejesus [facility] Course: Patient is a 55-year-old male who presented to [facility] emergency room after having AICD discharge, he was found to have new onset atrial fibrillation with rapid ventricular response. He was admitted to telemetry floor he was started on IV amiodarone and IV heparin he was seen by cardiology he was switched to oral amiodarone and was started on Eliquis. Patient did well he convert to normal sinus rhythm. He had no symptoms throughout this admission. He will be discharged home on amiodarone 400 mg twice daily and the dose will be tapered down gradually he was given a prescription by cardiology in that regard, he was also given a prescription for Eliquis 5 mg twice daily. On admission patient had pain in the left ear he had evidence of tympanic membrane erythema and bulging he was started on amoxicillin 1 g 3 times daily he was given a prescription for same at the time of discharge for 10 more days. Patient will follow up with his primary care physician Dr. Dejesus in one week Patient Condition at Discharge: Stable Plan - Discharge Summary New Discharge Prescriptions: Amiodarone [Cordarone] 400 mg PO BID #60 tab Apixaban [Eliquis] 5 mg PO BID #60 tab Aspirin 81 mg PO DAILY #30 chew Nicotine 21Mg/24Hr Patch [Habitrol] 1 patch TRANSDERM DAILY #30 patch Discharge Medication List Digoxin [Lanoxin] 125 mcg PO QAM 06/23/13 [History] Furosemide [Lasix] 20 mg PO QAM 06/23/13 [History] HYDROcodone/APAP 7.5-325MG [[place] 7.5-325] 1 tab PO QID PRN 06/23/13 [History] Metoprolol Tartrate [Lopressor] 150 mg PO BID 06/23/13 [History] Nitroglycerin Sl Tabs [Nitrostat] 0.4 mg SUBLINGUAL Q5M PRN 06/23/13 [History] Omeprazole [PriLOSEC] 20 mg PO BID 06/23/13 [History] Potassium Chloride [K-Tab ER] 10 meq PO QAM 06/23/13 [History] Gabapentin [Neurontin] 300 mg PO QID 10/12/15 [History] Isosorbide Mononitrate ER [Imdur] 30 mg PO QAM 10/12/15 [History] tiZANidine [Zanaflex] 2 mg PO TID 10/12/15 [History] Lisinopril [Zestril] 5 mg PO DAILY 02/13/16 [History] Rosuvastatin Calcium [Crestor] 40 mg PO HS 02/13/16 [History] Amiodarone [Cordarone] 400 mg PO BID #60 tab 02/16/16 [Rx] Amoxicillin 1,000 mg PO Q8HR cap 02/16/16 [Rx] Apixaban [Eliquis] 5 mg PO BID #60 tab 02/16/16 [Rx] Aspirin 81 mg PO DAILY #30 chew 02/16/16 [Rx] Nicotine 21Mg/24Hr Patch [Habitrol] 1 patch TRANSDERM DAILY #30 patch 02/16/16 [ Rx] Follow up Appointment(s)/Referral(s): Shanti Dejesus MD [Primary Care Provider] - 1-2 days John Sotelo MD [STAFF PHYSICIAN] - 1 Week
== END 2016-02-16 13:41 | disposition home or self-care (01) | DRG 310 ==
LOC: EC 12:34 → 6SEL 16:34
PROVIDERS: ADMIT Internal Medicine; ATTEND Internal Medicine
DX: I48.91 Unspecified atrial fibrillation (principal); E83.42 Hypomagnesemia; I10 Essential (primary) hypertension; E78.5 Hyperlipidemia, unspecified; F17.200 Nicotine dependence, unspecified, uncomplicated; H66.92 Otitis media, unspecified, left ear; I08.1 Rheumatic disorders of both mitral and tricuspid valves; I25.10 Atherosclerotic heart disease of native coronary artery without angina pectoris; I25.2 Old myocardial infarction; I25.5 Ischemic cardiomyopathy; J44.9 Chronic obstructive pulmonary disease, unspecified; K21.9 Gastro-esophageal reflux disease without esophagitis; M19.90 Unspecified osteoarthritis, unspecified site; G89.29 Other chronic pain; M54.9 Dorsalgia, unspecified; Z79.82 Long term (current) use of aspirin; Z79.899 Other long term (current) drug therapy; Z95.5 Presence of coronary angioplasty implant and graft; Z95.810 Presence of automatic (implantable) cardiac defibrillator; Z88.8 Allergy status to other drugs, medicaments and biological substances; Z98.1 Arthrodesis status
CPT/HCPCS: 36415; 71020; 80053; 80162; 82550; 82553; 83735; 84484; 85025; 85610; 85730; 93005; 93306; 96365; 96366; 96368; 96375; 96376; 99291

== ENCOUNTER → 2016-03-31 | Outpatient (CLI) | payer MEDICARE, OTHER | END | disposition home or self-care (01) | LOC: LABWHC1 13:23 | PROVIDERS: ATTEND Internal Medicine Cardiovascular Disease | DX: I50.9 Heart failure, unspecified (principal) | CPT/HCPCS: 36415; 80162 ==

== ENCOUNTER → 2017-05-30 | Outpatient (CLI) | payer MEDICARE, OTHER ==
--- NOTE | 2017-05-30 14:35 | CT ---
EXAMINATION TYPE: CT chest w con DATE OF EXAM: 05/30/2017 COMPARISON: NONE HISTORY: Cough CT DLP: 623 mGycm. Automated Exposure Control for Dose Reduction was Utilized. TECHNIQUE: CT scan of the thorax is performed following with IV Contrast, patient injected with 100 mL of Isovue 300. FINDINGS: LUNGS: Incidental note is made of an azygous lobe and azygous fissure. Mild centrilobular and parasep lisa emphysematous changes are seen predominating at the lung apices. The lungs are grossly clear, the re is no concerning parenchymal mass or nodule identified. Very minimal 1 to 2 mm focal pleural thick ening is seen along the left lower lung laterally on series 3 image 36 and series 4 image 36. There is no pleural effusion or pneumothorax seen. The tracheobronchial tree is patent. MEDIASTINUM: There are no greater than 1 cm hilar or mediastinal lymph nodes. No pericardial effusi on is seen. OTHER: Splenule seen adjacent to the [place] spleen. Gallbladder appears contracted. There is low-atte nuation in the hepatic parenchyma fitting criteria of minimal hepatic steatosis. Right upper pole 1.2 cm renal cyst is noted. Moderate multilevel degenerative changes of the thoracic spine are seen. Lef t-sided cardiac device is present within the subcutaneous tissues of the chest wall. IMPRESSION: 1. Mild paraseptal emphysematous changes. 2. No evidence of focal consolidation, pulmonary mass, or pneumothorax. 3. Findings most compatible with minimal hepatic steatosis.
== END | disposition home or self-care (01) ==
LOC: RADCTMAIN 13:16
PROVIDERS: ATTEND Family Medicine
DX: J43.9 Emphysema, unspecified (principal)
CPT/HCPCS: 71260; Q9967

== ENCOUNTER → 2018-03-28 | Outpatient (CLI) | payer MEDICARE, OTHER | END | disposition home or self-care (01) | LOC: LABWHC1 09:12 | PROVIDERS: ATTEND Family Medicine | DX: I25.10 Atherosclerotic heart disease of native coronary artery without angina pectoris (principal); I71.4 Abdominal aortic aneurysm, without rupture; J44.9 Chronic obstructive pulmonary disease, unspecified | CPT/HCPCS: 36415; 83090 ==

== ENCOUNTER 2019-03-20 09:52 | Emergency (ER) | payer MEDICARE, OTHER ==
[2019-03-20 09:56] VITALS: BP 130/75; PULSE 66; RESP 18; TEMP 97.9
--- NOTE | 2019-03-20 10:31 | ED ---
General Adult HPI - General Chief complaint: Back Pain/Injury Stated complaint: back pain Time Seen by Provider: 03/20/19 10:10 Source: patient, RN notes reviewed, old records reviewed Mode of arrival: ambulatory Limitations: no limitations - History of Present Illness Initial comments: The patient is a 58-year-old male presented to the emergency room today with chief complaint of increased right-sided back pain. Patient does admit that his had some symptoms on and off over the last 2 weeks. His states that symptoms seemed to start when he was having cough congestion symptoms. States the symptoms have improved but his noticed that he still had some discomfort towards her lower back. He states worse with certain movements at times. He states that specifically going from seated to a laying down position his noticed the pain. He states at times she's had some radiation into the right hip. Denies any bowel or bladder incontinence retention. Denies any saddle anesthesia. Patient denies any other complaints or symptoms. Patient denies any recent fever, chills, shortness of breath, chest pain, abdominal pain, nausea or vomiting, dysuria or hematuria, constipation or diarrhea, headaches or visual changes, or any other complaints. - Related Data Home Medications Medication Instructions Recorded Confirmed Digoxin [Lanoxin] 125 mcg PO QAM 06/23/13 02/13/16 Furosemide [Lasix] 20 mg PO QAM 06/23/13 02/13/16 HYDROcodone/APAP 7.5-325MG [[place] 1 tab PO QID PRN 06/23/13 02/13/16 7.5-325] Metoprolol Tartrate [Lopressor] 150 mg PO BID 06/23/13 02/13/16 Nitroglycerin Sl Tabs [Nitrostat] 0.4 mg SUBLINGUAL Q5M PRN 06/23/13 02/13/16 Omeprazole [PriLOSEC] 20 mg PO BID 06/23/13 02/13/16 Potassium Chloride [K-Tab ER] 10 meq PO QAM 06/23/13 02/13/16 Gabapentin [Neurontin] 300 mg PO QID 10/12/15 02/13/16 Isosorbide Mononitrate ER [Imdur] 30 mg PO QAM 10/12/15 02/13/16 tiZANidine [Zanaflex] 2 mg PO TID 10/12/15 02/13/16 Lisinopril [Zestril] 5 mg PO DAILY 02/13/16 02/13/16 Rosuvastatin Calcium [Crestor] 40 mg PO HS 02/13/16 02/13/16 Previous Rx's Medication Instructions Recorded Amiodarone [Cordarone] 400 mg PO BID #60 tab 02/16/16 Amoxicillin 1,000 mg PO Q8HR cap 02/16/16 Apixaban [Eliquis] 5 mg PO BID #60 tab 02/16/16 Aspirin 81 mg PO DAILY #30 chew 02/16/16 Nicotine 21Mg/24Hr Patch [Habitrol] 1 patch TRANSDERM DAILY #30 patch 02/16/16 Methocarbamol [Robaxin] 1,000 mg PO TID 5 Days tab 03/20/19 traMADol HCl [Ultram] 50 mg PO Q6H PRN #20 tab 03/20/19 Allergies Allergy/AdvReac Type Severity Reaction Status Date / Time ranitidine HCl [From Zantac] Allergy Itching Verified 03/20/19 09:54 Review of Systems ROS Statement: Those systems with pertinent positive or pertinent negative responses have been documented in the HPI. ROS Other: All systems not noted in ROS Statement are negative. Past Medical History Past Medical History: GERD/Reflux, Musculoskeletal Disorder, Osteoarthritis (OA) Additional Past Medical History / Comment(s): DDD, CHRONIC BACK PAIN, CAN'T WALK LONG DISTANCES. History of Any Multi-Drug Resistant Organisms: None Reported Past Surgical History: AICD, Heart Catheterization With Stent Additional Past Surgical History / Comment(s): 10/20/15 posterior lateral decompression and fusion transforaminal lumbar interbody fusion L4-5, [id number] surgical hx: eye surg (CROSSED EYED). AICD: [employer], MOD#E141, SE#[id number]. Past Anesthesia/Blood Transfusion Reactions: No Reported Reaction Date of Last Stent Placement:: 2011 Type of Cardiac Device: AICD Device Placement Date:: 2012 Past Psychological History: No Psychological Hx Reported Smoking Status: Current every day smoker Past Alcohol Use History: Occasional Past Drug Use History: None Reported - Past Family History Mother Family Medical History: No Reported History Additional Family Medical History / Comment(s): Mother of a brain aneurysm rupture in her 50's Father Family Medical History: CVA/TIA Additional Family Medical History / Comment(s): Father of a CVA. General Exam - General Exam Comments Initial Comments: General: The patient is awake and alert, in no distress, and does not appear acutely ill. Cardiovascular: There is a regular rate and rhythm. Respiratory: Lungs are clear to auscultation, respirations are non-labored, breath sounds are equal. No wheezes, stridor, rales, or rhonchi. Gastrointestinal: Soft nontender Musculoskeletal: Normal ROM, no tenderness. Strength 5/5. Sensation intact. Pulses equal bilaterally 2+. Neurological: A&O x 3. CN II-XII intact, There are no obvious motor or sensory deficits. Coordination appears grossly intact. Speech is normal. Skin: Skin is warm and dry and no rashes or lesions are noted. Psychiatric: Cooperative, appropriate mood & affect, normal judgment. Limitations: no limitations Course Vital Signs 03/20/19 09:54 Temperature 97.9 F Pulse Rate 66 Respiratory 18 Rate Blood Pressure 130/75 O2 Sat by Pulse 98 Oximetry Medical Decision Making - Medical Decision Making The patient does have spoken past medical history for a lumbar fusion of L4-L5. Patient states that he's had some pain in the right side is worse with certain movements. Patient does not that the symptoms started after having symptoms of cough congestion which improved. He sits still feeling some discomfort with certain movements. Patient does take blood thinner of L Oquist to history of A. fib. Patient has been trying Tylenol at home with some relief. He is not taking any other medications. Patient vital stable here in emergency room. Patient will be treated with muscle relaxer and short prescription of tramadol for his pain. He is advised follow-up with his family physician/orthopedic doctor that he seen in the past. Is advised return to emergency room if any symptoms increase worsen or for any other concerns. Patient states understanding and is in agreement with plan. Disposition Clinical Impression: Acute low back pain Disposition: HOME SELF-CARE Condition: Good Instructions (If sedation given, give patient instructions): Acute Low Back Pain (ED) Additional Instructions: Please call to family physician/orthopedic doctor over the next 2 days. His medications as prescribed and return to emergency room if symptoms increase or worsen or for any other concerns. Prescriptions: Methocarbamol [Robaxin] 1,000 mg PO TID 5 Days tab traMADol HCl [Ultram] 50 mg PO Q6H PRN #20 tab PRN Reason: Pain Is patient prescribed a controlled substance at d/c from ED?: Yes If prescribed controlled substance>3 days was MAPS reviewed?: Prescribed <3 Days Referrals: Shanti Dejesus MD [Primary Care Provider] - 1-2 days Time of Disposition: 10:30
== END 2019-03-20 10:39 | disposition home or self-care (01) ==
LOC: EC 09:52
DX: M54.5 Low back pain (principal); M25.551 Pain in right hip; K21.9 Gastro-esophageal reflux disease without esophagitis; M19.90 Unspecified osteoarthritis, unspecified site; F17.200 Nicotine dependence, unspecified, uncomplicated; Z88.8 Allergy status to other drugs, medicaments and biological substances; Z79.899 Other long term (current) drug therapy; Z98.1 Arthrodesis status
CPT/HCPCS: 99283

== ENCOUNTER 2019-04-01 09:26 | Inpatient (IN) | payer MEDICARE, OTHER ==
--- NOTE | 2019-04-01 10:32 | ED ---
General Adult HPI - General Chief complaint: Dizziness Stated complaint: poss heart attack Time Seen by Provider: 04/01/19 09:34 Source: patient Mode of arrival: ambulatory Limitations: no limitations - History of Present Illness Initial comments: Dictation was produced using D1G dictation software. please excuse any grammatical, word or spelling errors. Chief Complaint: 58-year-old male past medical history of myocardial infarction, chronic back pain and GERD presents with dizziness. History of Present Illness: 58-year-old male has multiple comorbidities. Patient is on multiple medications. He states that his symptoms began yesterday. Can't feeling dizzy. He went to see his primary care physician this morning for check up. He was found to be hypotensive and pale in appearance. He takes multiple cardiac medications. He does have an AICD. Patient was sent in by primary care physician Dr. Dejesus for further care. She has no pain complaints at this time. Denies any nausea or vomiting. Denies a sensation of the room spinning. 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 The ROS documented in this emergency department record has been reviewed and confirmed by me. Those systems with pertinent positive or negative responses have been documented in the HPI. All other systems are other negative and/or noncontributory. PHYSICAL EXAM: General Impression: Alert and oriented x3, not in acute distress HEENT: Normocephalic atraumatic, extra-ocular movements intact, pupils equal and reactive to light bilaterally, mucous membranes moist. Cardiovascular: Heart regular rate and rhythm, S1&S2 audible, no murmurs, rubs or gallops Chest: Lungs clear to auscultation bilaterally, no rhonchi, no wheeze, no rales Abdomen: Bowel sounds present, abdomen soft, non-tender, non-distended, no organomegaly Musculoskeletal: Pulses present and equal in all extremities, no peripheral edema Motor: no focal deficits noted Neurological: CN II-XII grossly intact, no focal motor or sensory deficits noted Skin: Intact with no visualized rashes Psych: Normal affect and mood ED course: 58-year-old male with chief medical complaint of dizziness. All signs upon arrival shows heart rate of 49, worse vital signs within acceptable limits. Physical examination is benign. Medications were reviewed. Laboratory evaluation obtained. CBC unremarkable. Coag panel unremarkable. Metabolic panel shows lactic acid doses of 2.2. There appears to be new acute kidney injury creatinine 1.7. Concern for mild alcoholic hepatitis. Troponin 0.019 which appears to be at his baseline. Dig level is 1.0. Patient observed in the emergency department with blood pressures within the 90s to 100 100s. Patient still mildly bradycardic. Patient reports feeling well at bedside. Discussed patient case with Dr. Sr except patient's care. Patient given intravenous fluids. Cardiology consulted. EKG interpretation: Ventricular rate 66, sinus rhythm with intermittent pacing QRS 166, QTC 480. No AR prolongation, no QTC prolongation, no ST or T-wave changes noted. EKG compared to February 12/2017 showing widening of the QRS - Related Data Home Medications Medication Instructions Recorded Confirmed Digoxin [Lanoxin] 125 mcg PO QAM 06/23/13 04/01/19 Furosemide [Lasix] 20 mg PO QAM 06/23/13 04/01/19 Metoprolol Tartrate [Lopressor] 200 mg PO BID 06/23/13 04/01/19 Nitroglycerin Sl Tabs [Nitrostat] 0.4 mg SUBLINGUAL Q5M PRN 06/23/13 04/01/19 Omeprazole [PriLOSEC] 20 mg PO DAILY 06/23/13 04/01/19 Potassium Chloride [K-Tab ER] 20 meq PO QAM 06/23/13 04/01/19 Isosorbide Mononitrate ER [Imdur] 30 mg PO QAM 10/12/15 04/01/19 Lisinopril [Zestril] 5 mg PO DAILY 02/13/16 04/01/19 Rosuvastatin Calcium [Crestor] 40 mg PO HS 02/13/16 04/01/19 Amiodarone [Cordarone] 200 mg PO DAILY 03/20/19 04/01/19 traMADol HCl [Ultram] 50 - 100 mg PO Q6H PRN 04/01/19 04/01/19 Previous Rx's Medication Instructions Recorded Apixaban [Eliquis] 5 mg PO BID #60 tab 02/16/16 Aspirin 81 mg PO DAILY #30 chew 02/16/16 Methocarbamol [Robaxin] 1,000 mg PO TID 5 Days tab 03/20/19 Allergies Allergy/AdvReac Type Severity Reaction Status Date / Time ranitidine HCl [From Zantac] Allergy Itching Verified 04/01/19 10:47 Review of Systems ROS Statement: Those systems with pertinent positive or pertinent negative responses have been documented in the HPI. ROS Other: All systems not noted in ROS Statement are negative. Past Medical History Past Medical History: GERD/Reflux, Myocardial Infarction ([place]), Musculoskeletal Disorder, Osteoarthritis (OA) Additional Past Medical History / Comment(s): DDD, CHRONIC BACK PAIN, CAN'T WALK LONG DISTANCES. History of Any Multi-Drug Resistant Organisms: None Reported Past Surgical History: AICD, Heart Catheterization With Stent Additional Past Surgical History / Comment(s): 10/20/15 posterior lateral decompression and fusion transforaminal lumbar interbody fusion L4-5, [id number] surgical hx: eye surg (CROSSED EYED). AICD: [employer], MOD#E141, SE#[id number]. Past Anesthesia/Blood Transfusion Reactions: No Reported Reaction Date of Last Stent Placement:: 2011 Type of Cardiac Device: AICD Device Placement Date:: 2012 Past Psychological History: No Psychological Hx Reported Smoking Status: Current every day smoker Past Alcohol Use History: Occasional Past Drug Use History: None Reported - Past Family History Mother Family Medical History: No Reported History Additional Family Medical History / Comment(s): Mother of a brain aneurysm rupture in her 50's Father Family Medical History: CVA/TIA Additional Family Medical History / Comment(s): Father of a CVA. General Exam Limitations: no limitations Course Vital Signs 04/01/19 04/01/19 04/01/19 09:28 09:37 10:00 Temperature 97.4 F L Pulse Rate 49 L 66 Pulse Rate [ Fish Rod Maker ] Respiratory 18 16 Rate Blood Pressure 149/60 107/63 O2 Sat by Pulse 98 96 99 Oximetry 04/01/19 04/01/19 04/01/19 10:19 10:21 11:00 Temperature Pulse Rate 51 L 63 Pulse Rate [ 49 L Fish Rod Maker ] Respiratory 16 18 Rate Blood Pressure 105/62 O2 Sat by Pulse 98 99 Oximetry 04/01/19 04/01/19 12:00 13:00 Temperature Pulse Rate 54 L 51 L Pulse Rate [ Fish Rod Maker ] Respiratory 15 16 Rate Blood Pressure 94/58 O2 Sat by Pulse 98 100 Oximetry Medical Decision Making - Lab Data Result diagrams: 04/01/19 09:58 04/01/19 09:58 Lab Results 04/01/19 04/01/19 04/01/19 Range/Units 09:58 09:58 09:58 WBC 9.4 (3.8-10.6) k/uL RBC 5.47 (4.30-5.90) m/uL Hgb 17.4 (13.0-17.5) gm/dL Hct 52.8 (39.0-53.0) % MCV 96.6 (80.0-100.0) fL MCH 31.8 (25.0-35.0) pg MCHC 32.9 (31.0-37.0) g/dL RDW 13.0 (11.5-15.5) % Plt Count 161 (150-450) k/uL Neutrophils % 64 % Lymphocytes % 24 % Monocytes % 8 % Eosinophils % 2 % Basophils % 1 % Neutrophils # 6.0 (1.3-7.7) k/uL Lymphocytes # 2.3 (1.0-4.8) k/uL Monocytes # 0.7 (0-1.0) k/uL Eosinophils # 0.2 (0-0.7) k/uL Basophils # 0.1 (0-0.2) k/uL Manual Slide Review Performed Large Platelets Present Poikilocytosis (manual Present PT (9.0-12.0) sec INR (<1.2) APTT (22.0-30.0) sec Sodium 138 (137-145) mmol/L Potassium 4.2 (3.5-5.1) mmol/L Chloride 101 (98-107) mmol/L Carbon Dioxide 26 (22-30) mmol/L Anion Gap 11 mmol/L BUN 18 (9-20) mg/dL Creatinine 1.70 H (0.66-1.25) mg/dL Est GFR (CKD-EPI)AfAm 50 (>60 ml/min/1.73 sqM) Est GFR (CKD-EPI)NonAf 43 (>60 ml/min/1.73 sqM) Glucose 142 H (74-99) mg/dL Plasma Lactic Acid Ryne 2.2 H* (0.7-2.0) mmol/L Calcium 9.6 (8.4-10.2) mg/dL Magnesium 2.1 (1.6-2.3) mg/dL Total Bilirubin 0.9 (0.2-1.3) mg/dL AST 87 H (17-59) U/L ALT 71 H (4-49) U/L Alkaline Phosphatase 155 H (38-126) U/L Troponin I (0.000-0.034) ng/mL Total Protein 7.5 (6.3-8.2) g/dL Albumin 4.4 (3.5-5.0) g/dL Digoxin 1.0 ng/mL 04/01/19 04/01/19 Range/Units 09:58 09:58 WBC (3.8-10.6) k/uL RBC (4.30-5.90) m/uL Hgb (13.0-17.5) gm/dL Hct (39.0-53.0) % MCV (80.0-100.0) fL MCH (25.0-35.0) pg MCHC (31.0-37.0) g/dL RDW (11.5-15.5) % Plt Count (150-450) k/uL Neutrophils % % Lymphocytes % % Monocytes % % Eosinophils % % Basophils % % Neutrophils # (1.3-7.7) k/uL Lymphocytes # (1.0-4.8) k/uL Monocytes # (0-1.0) k/uL Eosinophils # (0-0.7) k/uL Basophils # (0-0.2) k/uL Manual Slide Review Large Platelets Poikilocytosis (manual PT 10.8 (9.0-12.0) sec INR 1.1 (<1.2) APTT 24.7 (22.0-30.0) sec Sodium (137-145) mmol/L Potassium (3.5-5.1) mmol/L Chloride (98-107) mmol/L Carbon Dioxide (22-30) mmol/L Anion Gap mmol/L BUN (9-20) mg/dL Creatinine (0.66-1.25) mg/dL Est GFR (CKD-EPI)AfAm (>60 ml/min/1.73 sqM) Est GFR (CKD-EPI)NonAf (>60 ml/min/1.73 sqM) Glucose (74-99) mg/dL Plasma Lactic Acid Ryne (0.7-2.0) mmol/L Calcium (8.4-10.2) mg/dL Magnesium (1.6-2.3) mg/dL Total Bilirubin (0.2-1.3) mg/dL AST (17-59) U/L ALT (4-49) U/L Alkaline Phosphatase (38-126) U/L Troponin I 0.019 (0.000-0.034) ng/mL Total Protein (6.3-8.2) g/dL Albumin (3.5-5.0) g/dL Digoxin ng/mL Disposition Clinical Impression: Dizziness Disposition: ADMITTED IP TO THIS HOSP Condition: Fair Referrals: Shanti Dejesus MD [Primary Care Provider] - 1-2 days Decision Time: 13:05
--- NOTE | 2019-04-01 10:35 | XR ---
EXAMINATION TYPE: XR chest 1V portable DATE OF EXAM: 04/01/2019 COMPARISON: Prior chest x-ray 02/23/2016, chest CT 05/30/2017 HISTORY: Dizzy and lightheaded, abnormal chest x-ray TECHNIQUE: Single frontal view of the chest is obtained. FINDINGS: Patient is rotated. There is a generator in the left pectoral region, intracardiac defibri llator lead present in the right ventricle. No evident pneumothorax or pleural effusion. Heart size a ppearance may be accentuated due to technique. Question some minimal basilar subsegmental atelectatic changes. IMPRESSION: Rotated exam. Question some minimal subsegmental basilar atelectatic changes.
[2019-04-01 10:51] LABS: INR 1.1 (<1.2); Partial Thromboplastin Time 24.7 sec (22.0-30.0); Prothrombin Time 10.8 sec (9.0-12.0)
[2019-04-01 11:08] LABS: Albumin 4.4 g/dL (3.5-5.0); Calcium 9.6 mg/dL (8.4-10.2); Magnesium 2.1 mg/dL (1.6-2.3); Potassium 4.2 mmol/L (3.5-5.1); Total Bilirubin 0.9 mg/dL (0.2-1.3); Total Protein 7.5 g/dL (6.3-8.2)
[2019-04-01 11:50] LABS: Basophils # (A) 0.1 k/uL (0-0.2); Basophils % (A) 1 %; Eosinophils # (A) 0.2 k/uL (0-0.7); Eosinophils % (A) 2 %; HCT 52.8 % (39.0-53.0); HGB 17.4 gm/dL (13.0-17.5); Lymphocytes # (A) 2.3 k/uL (1.0-4.8); Lymphocytes % (A) 24 %; MCH 31.8 pg (25.0-35.0); MCHC 32.9 g/dL (31.0-37.0); MCV 96.6 fL (80.0-100.0); Mean Platelet Volume 11.7; Monocytes # (A) 0.7 k/uL (0-1.0); Monocytes % (A) 8 %; Neutrophils % (A) 64 %; Platelet Count 161 k/uL (150-450); RBC 5.47 m/uL (4.30-5.90); WBC 9.4 k/uL (3.8-10.6)
[2019-04-01 12:07] LABS: Large Platelets Present
[2019-04-01 12:10] LABS: Poikilocytosis (M) Present
[2019-04-01] MEDS ORDERED: SODIUM CHLORIDE 0.9% 1,000 ML IV STA ×2 (12:35→12:36)
[2019-04-01] MEDS ORDERED: NALOXONE 0.4 MG/ML 1 ML VIAL IV PRN (13:02)
[2019-04-01] MEDS: APIXABAN 5 MG TAB PO SCH (19:51)
[2019-04-02 05:57] LABS: HGB 16.4 gm/dL (13.0-17.5); MCH 31.4 pg (25.0-35.0); MCHC 32.3 g/dL (31.0-37.0); MCV 97.2 fL (80.0-100.0); Mean Platelet Volume 11.8; Platelet Count 138 k/uL (150-450); RBC 5.24 m/uL (4.30-5.90); RDW 13.2 % (11.5-15.5); WBC 9.3 k/uL (3.8-10.6)
[2019-04-02 06:08] LABS: Albumin 3.6 g/dL (3.5-5.0); Calcium 8.5 mg/dL (8.4-10.2); Potassium 3.7 mmol/L (3.5-5.1); Total Bilirubin 0.5 mg/dL (0.2-1.3); Total Protein 6.5 g/dL (6.3-8.2)
[2019-04-02 06:13] LABS: Band Neutrophils % 2 %; Eosinophils # (M) 0.28 k/uL (0-0.7); Lymphocytes # (M) 3.07 k/uL (1.0-4.8); Monocytes # (M) 0.93 k/uL (0-1.0); Neutrophils % (M) 52 %; Nucleated Red Blood Cells 0 /100 WBC (0-0); Total Cells Counted 100
--- NOTE | 2019-04-02 07:29 | P.CRDCN ---
History of Present Illness Consult date: 04/02/19 Chief complaint: Dizziness and lightheadedness History of present illness: This is a very pleasant 58-year-old gentleman who sees Dr. Sotelo in the office on regular basis with a past medical history significant for coronary artery disease and prior stenting of the left circumflex as well as RCA, cardiomyopathy with known ejection fraction around 40%, hypertension, and dyslipidemia, was referred from his primary care physician office directed to the hospital for further evaluation. As a matter of fact the patient was sent to the emergency department. At his primary care physician office his blood pressure was marginally low and the patient was feeling dizzy and lightheaded. No syncope. No symptoms of chest pain or chest discomfort. Because of that he was sent to the ER. Overall his workup is unremarkable. The troponin was checked and came in to be unremarkable. The chest x-ray did not show any acute abnormalities. The EKG showed what it seems to be sinus rhythm with ventricular paced rhythm. Patient is also known to have history of paroxysmal atrial fibrillation and he is on oral anticoagulation. The patient stated that he has been up and around and he has no symptoms and he would like to be discharged home. Having said that I am going to do an AICD interrogation to rule out any cardiac arrhythmia and if that came in to be unremarkable the patient possibly can go home and follow-up with Dr. Dr. Sotelo as well as primary care physician. These note that the pressure was not hypotensive during his hospital stay. Past Medical History Past Medical History: Atrial Fibrillation, Coronary Artery Disease (CAD), Chest Pain / Angina, GERD/Reflux, Hyperlipidemia, Hypertension, Myocardial Infarction ([place]), Musculoskeletal Disorder, Osteoarthritis (OA) Additional Past Medical History / Comment(s): Ischemic cardiomyopathy, arthritis in multiple joints, chronic back pain, unable to walk long distances d/t back problems Last Myocardial Infarction Date:: 2007 History of Any Multi-Drug Resistant Organisms: None Reported Past Surgical History: AICD, Heart Catheterization, Heart Catheterization With Stent Additional Past Surgical History / Comment(s): 10/20/15 posterior lateral decompression and fusion transforaminal lumbar interbody fusion L4-5, L5-s1, AICD: [employer], MOD#E141, SE#[id number], DFTs, 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 Past Anesthesia/Blood Transfusion Reactions: No Reported Reaction Date of Last Stent Placement:: 2011 Type of Cardiac Device: AICD Device Placement Date:: 2012 Smoking Status: Current every day smoker - Past Family History Mother Family Medical History: No Reported History Additional Family Medical History / Comment(s): Mother of a brain aneurysm rupture in her 50's Father Family Medical History: CVA/TIA Additional Family Medical History / Comment(s): Father of a CVA. He one year later in a fpc. Medications and Allergies Home Medications Medication Instructions Recorded Confirmed Type Digoxin [Lanoxin] 125 mcg PO QAM 06/23/13 04/01/19 History Furosemide [Lasix] 20 mg PO QAM 06/23/13 04/01/19 History Metoprolol Tartrate [Lopressor] 200 mg PO BID 06/23/13 04/01/19 History Nitroglycerin Sl Tabs [Nitrostat] 0.4 mg SUBLINGUAL Q5M PRN 06/23/13 04/01/19 History Omeprazole [PriLOSEC] 20 mg PO DAILY 06/23/13 04/01/19 History Potassium Chloride [K-Tab ER] 20 meq PO QAM 06/23/13 04/01/19 History Isosorbide Mononitrate ER [Imdur] 30 mg PO QAM 10/12/15 04/01/19 History Lisinopril [Zestril] 5 mg PO DAILY 02/13/16 04/01/19 History Rosuvastatin Calcium [Crestor] 40 mg PO HS 02/13/16 04/01/19 History Apixaban [Eliquis] 5 mg PO BID #60 tab 02/16/16 04/01/19 Rx Aspirin 81 mg PO DAILY #30 chew 02/16/16 04/01/19 Rx Amiodarone [Cordarone] 200 mg PO DAILY 03/20/19 04/01/19 History Methocarbamol [Robaxin] 1,000 mg PO TID 5 Days tab 03/20/19 04/01/19 Rx traMADol HCl [Ultram] 50 - 100 mg PO Q6H PRN 04/01/19 04/01/19 History Allergies Allergy/AdvReac Type Severity Reaction Status Date / Time ranitidine HCl [From Zantac] Allergy Itching Verified 04/01/19 10:47 Physical Exam Vitals: Vital Signs Temp Pulse Pulse Resp BP Pulse Ox 04/02/19 04:00 97.7 F 69 18 114/71 94 L 04/02/19 00:00 98.2 F 58 L 15 108/73 96 04/01/19 20:00 97.9 F 61 16 127/82 96 04/01/19 16:00 53 L 20 112/65 98 04/01/19 14:00 97.4 F L 54 L 16 106/72 100 04/01/19 13:00 51 L 16 94/58 100 04/01/19 12:00 54 L 15 98 04/01/19 11:00 63 18 99 04/01/19 10:21 51 L 16 105/62 98 04/01/19 10:19 49 L 04/01/19 10:00 66 16 107/63 99 04/01/19 09:37 96 04/01/19 09:28 97.4 F L 49 L 18 149/60 98 Intake and Output 04/01/19 04/02/19 04/02/19 22:59 06:59 14:59 Intake Total 490 Balance 490 Intake: Intake, IV Titration 250 Amount Sodium Chloride 0.9% 1, 250 000 ml @ 125 mls/hr IV . Q8H STA Rx#:[id number] Oral 240 Other: # Voids 1 1 - Constitutional General appearance: no acute distress - Respiratory Respiratory: bilateral: CTA - Cardiovascular Rhythm: regular Heart sounds: normal: S1, S2 Results 04/02/19 05:17 04/02/19 05:17 Cardiac Enzymes 04/01/19 04/01/19 04/02/19 Range/Units 09:58 09:58 05:17 AST 87 H 53 (17-59) U/L Troponin I 0.019 (0.000-0.034) ng/mL Coagulation 04/01/19 Range/Units 09:58 PT 10.8 (9.0-12.0) sec APTT 24.7 (22.0-30.0) sec CBC 04/01/19 04/02/19 Range/Units 09:58 05:17 WBC 9.4 9.3 (3.8-10.6) k/uL RBC 5.47 5.24 (4.30-5.90) m/uL Hgb 17.4 16.4 (13.0-17.5) gm/dL Hct 52.8 51.0 (39.0-53.0) % Plt Count 161 138 L (150-450) k/uL Comprehensive Metabolic Panel 04/01/19 04/02/19 Range/Units 09:58 05:17 Sodium 138 138 (137-145) mmol/L Potassium 4.2 3.7 (3.5-5.1) mmol/L Chloride 101 105 (98-107) mmol/L Carbon Dioxide 26 26 (22-30) mmol/L BUN 18 17 (9-20) mg/dL Creatinine 1.70 H 1.17 (0.66-1.25) mg/dL Glucose 142 H 129 H (74-99) mg/dL Calcium 9.6 8.5 (8.4-10.2) mg/dL AST 87 H 53 (17-59) U/L ALT 71 H 49 (4-49) U/L Alkaline Phosphatase 155 H 131 H (38-126) U/L Total Protein 7.5 6.5 (6.3-8.2) g/dL Albumin 4.4 3.6 (3.5-5.0) g/dL Current Medications Generic Name Dose Route Start Last Admin Trade Name Freq PRN Reason Stop Dose Admin Amiodarone HCl 200 mg 04/02/19 09:00 Cordarone PO DAILY [facility] Apixaban 5 mg 04/01/19 21:00 04/01/19 19:51 Eliquis PO 5 mg BID CESARIO Administration Aspirin 81 mg 04/02/19 09:00 Aspirin PO DAILY [facility] Atorvastatin Calcium 80 mg 04/02/19 21:00 Lipitor PO HS [facility] Isosorbide Mononitrate 30 mg 04/02/19 09:00 Imdur PO QAM [facility] Metoprolol Tartrate 200 mg 04/02/19 09:00 Lopressor PO BID [facility] Naloxone HCl 0.2 mg 04/01/19 13:02 Narcan IV Q2M PRN Opioid Reversal Intake and Output 04/01/19 04/02/19 04/02/19 22:59 06:59 14:59 Intake Total 490 Balance 490 Intake: Intake, IV Titration 250 Amount Sodium Chloride 0.9% 1, 250 000 ml @ 125 mls/hr IV . Q8H STA Rx#:[id number] Oral 240 Other: # Voids 1 1 04/02/19 05:17 04/02/19 05:17 Assessment and Plan Assessment: Assessment #1 coronary artery disease with prior stenting of the LCx and RCA #2 cardiomyopathy was EF around 40% #3 paroxysmal atrial fibrillation #4 multiple comorbid conditions Plan #1 acute coronary event was ruled out #2 the patient has been normotensive during his hospital stay #3 I would do an AICD interrogations #4 follow-up with the patient Thank you for allowing us participate in his care
[2019-04-02 08:39] VITALS: RESP 16; TEMP 98.2
[2019-04-02] MEDS: APIXABAN 5 MG TAB PO SCH (08:56)
[2019-04-02] MEDS ORDERED: AMIODARONE 200 MG TAB PO SCH (09:00)
[2019-04-02] MEDS ORDERED: METOPROLOL TARTRATE 50 MG TAB PO SCH ×2 (09:00)
[2019-04-02] MEDS ORDERED: ISOSORBIDE MONONITRATE ER 30 MG TAB.ER.24H PO SCH (09:00)
[2019-04-02] MEDS ORDERED: ASPIRIN 81 MG PO SCH (09:00)
[2019-04-02 12:05] VITALS: BP 133/76; PULSE 62
[2019-04-02] MEDS ORDERED: ATORVASTATIN 80 MG TAB PO SCH (21:00)
--- NOTE | 2019-04-02 21:48 | P.HPIM ---
History of Present Illness H&P Date: 04/02/19 Chief Complaint: dizziness/hypotension Dionicio Figueroa is a 58 yo M with PMH significant for CAD with stenting, cardiomyopathy, chronic systolic CHF, HTN and HLD who was sent to the ED from PCP clinic after complaining of dizziness and lightheadedness with borderline low BP. Pt denies any other symptoms and does not feel he had been overexerting himself or recently ill. On presentation his BP was initially 149/60, pulse 50, EKG with sinus rhythm with ventricular pacing, CXR and trop negative. Labs remarkable for Cr 1.7 from baseline 1.1 and lactic 2.2. Pt was given IVF and states his symptoms improved significantly after this. He has not experienced any further lightheadedness or malaise since his arrival to the hospital. Review of Systems All systems: negative Constitutional: Reports weakness, Denies chills, Denies fever Eyes: denies blurred vision, denies pain Ears, nose, mouth and throat: Denies headache, Denies sore throat Cardiovascular: Reports lightheadedness, Denies chest pain, Denies claudication, Denies dyspnea on exertion, Denies shortness of breath Respiratory: Denies cough Gastrointestinal: Denies abdominal pain, Denies diarrhea, Denies nausea, Denies vomiting Musculoskeletal: Denies myalgias Integumentary: Denies pruritus, Denies rash Neurological: Reports vertigo, Denies numbness, Denies weakness Psychiatric: Denies anxiety, Denies depression Endocrine: Denies fatigue, Denies weight change Past Medical History Past Medical History: Atrial Fibrillation, Coronary Artery Disease (CAD), Chest Pain / Angina, GERD/Reflux, Hyperlipidemia, Hypertension, Myocardial Infarction (DC), Musculoskeletal Disorder, Osteoarthritis (OA) Additional Past Medical History / Comment(s): Ischemic cardiomyopathy, arthritis in multiple joints, chronic back pain, unable to walk long distances d/t back problems Last Myocardial Infarction Date:: 2007 History of Any Multi-Drug Resistant Organisms: None Reported Past Surgical History: AICD, Heart Catheterization, Heart Catheterization With Stent Additional Past Surgical History / Comment(s): 10/20/15 posterior lateral decompression and fusion transforaminal lumbar interbody fusion L4-5, L5-s1, AICD: [employer], MOD#[id number], SE#[id number], DFTs, 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 Past Anesthesia/Blood Transfusion Reactions: No Reported Reaction Date of Last Stent Placement:: 2011 Type of Cardiac Device: AICD Device Placement Date:: 2012 Smoking Status: Current every day smoker - Past Family History Mother Family Medical History: No Reported History Additional Family Medical History / Comment(s): Mother of a brain aneurysm rupture in her 50's Father Family Medical History: CVA/TIA Additional Family Medical History / Comment(s): Father of a CVA. He one year later in a jail. Medications and Allergies Home Medications Medication Instructions Recorded Confirmed Type Digoxin [Lanoxin] 125 mcg PO QAM 06/23/13 04/01/19 History Furosemide [Lasix] 20 mg PO QAM 06/23/13 04/01/19 History Metoprolol Tartrate [Lopressor] 200 mg PO BID 06/23/13 04/01/19 History Nitroglycerin Sl Tabs [Nitrostat] 0.4 mg SUBLINGUAL Q5M PRN 06/23/13 04/01/19 History Omeprazole [PriLOSEC] 20 mg PO DAILY 06/23/13 04/01/19 History Potassium Chloride [K-Tab ER] 20 meq PO QAM 06/23/13 04/01/19 History Isosorbide Mononitrate ER [Imdur] 30 mg PO QAM 10/12/15 04/01/19 History Lisinopril [Zestril] 5 mg PO DAILY 02/13/16 04/01/19 History Rosuvastatin Calcium [Crestor] 40 mg PO HS 02/13/16 04/01/19 History Apixaban [Eliquis] 5 mg PO BID #60 tab 02/16/16 04/01/19 Rx Aspirin 81 mg PO DAILY #30 chew 02/16/16 04/01/19 Rx Amiodarone [Cordarone] 200 mg PO DAILY 03/20/19 04/01/19 History Methocarbamol [Robaxin] 1,000 mg PO TID 5 Days tab 03/20/19 04/01/19 Rx traMADol HCl [Ultram] 50 - 100 mg PO Q6H PRN 04/01/19 04/01/19 History Allergies Allergy/AdvReac Type Severity Reaction Status Date / Time ranitidine HCl [From Zantac] Allergy Itching Verified 04/01/19 10:47 Physical Exam Vitals: Vital Signs Temp Pulse Pulse Resp BP BP Pulse Ox 04/02/19 11:55 62 133/76 04/02/19 10:00 69 16 129/93 04/02/19 08:00 98.2 F 58 L 16 124/82 98 04/02/19 04:00 97.7 F 69 18 114/71 94 L 04/02/19 00:00 98.2 F 58 L 15 108/73 96 Intake and Output 04/02/19 04/02/19 04/02/19 06:59 14:59 22:59 Intake Total 245 Output Total 240 Balance 5 Intake: Intake, IV Titration 125 Amount Sodium Chloride 0.9% 1, 125 000 ml @ 125 mls/hr IV . Q8H STA Rx#:[id number] Oral 120 Output: Urine 240 Other: # Voids 1 1 General: well nourished, well developed, NAD. Vitals reviewed Eyes: PERRL, EOMI, conjunctiva normal HENT: normocephalic, mucus membranes moist Neck: supple, no JVD Lungs: normal respiratory effort, no wheezes or rales CV: Regular rate and rhythm, no murmur. Peripheral pulses 2+ Abdomen: soft, nondistended, no organomegaly Lymph: no cervical or axillary LAD Skin: warm and dry. Neuro: A&Ox3, normal mood and affect Results CBC & Chem 7: 04/02/19 05:17 04/02/19 05:17 Labs: Abnormal Lab Results - Last 24 Hours (Table) 04/02/19 04/02/19 Range/Units 05:17 05:17 Plt Count 138 L (150-450) k/uL Glucose 129 H (74-99) mg/dL Alkaline Phosphatase 131 H (38-126) U/L Thrombosis Risk Factor Assmnt - Choose All That Apply Any of the Below Risk Factors Present?: Yes Each Factor Represents 1 point: Age 41-60 years, Obesity (BMI >25) Other Risk Factors: No Other congenital or acquired thrombophilia - If yes, enter type in comment: No Thrombosis Risk Factor Assessment Total Risk Factor Score: 2 Thrombosis Risk Factor Assessment Level: Low Risk Assessment and Plan (1) Acute kidney injury Status: Acute Code(s): N17.9 - ACUTE KIDNEY FAILURE, UNSPECIFIED SNOMED Code(s): 17189939 (2) Dehydration Status: Acute Code(s): E86.0 - DEHYDRATION SNOMED Code(s): 43619665 (3) Cardiomyopathy Status: Acute Code(s): I42.9 - CARDIOMYOPATHY, UNSPECIFIED SNOMED Code(s): 73892968 (4) Chronic systolic CHF (congestive heart failure), NYHA class 2 Status: Acute Code(s): I50.22 - CHRONIC SYSTOLIC (CONGESTIVE) HEART FAILURE SNOMED Code(s): 678472225 (5) Paroxysmal atrial fibrillation Status: Acute Code(s): I48.0 - PAROXYSMAL ATRIAL FIBRILLATION SNOMED Code(s): 671139802 (6) Coronary artery disease Status: Acute Code(s): I25.10 - ATHSCL HEART DISEASE OF [place] CORONARY ARTERY W/O ANG PCTRS SNOMED Code(s): 00936323 (7) Defibrillator discharge Status: Acute Code(s): Z45.02 - ENCNTR FOR ADJUST AND MGMT OF AUTOMATIC IMPLNTBL CARD DEFIB SNOMED Code(s): 950429473 Plan: 1. Vertigo, lightheadedness. Likely secondary to dehydration. Now resolved. Cardiology consulted and planning to interrogate pacer 2. VEE. Resolved with IVF 3. Elevated lactic acid. Resolved 4. CAD 5. Chronic systolic CHF. 6. Paroxysmal A fib
--- NOTE | 2019-04-02 21:52 | P.DS ---
Providers Date of admission: 04/01/19 13:02 Expected date of discharge: 04/02/19 Attending physician: Aj Ross MD Consults: 04/01/19 13:02 Consult Physician Routine Consulting Provider: John Sotelo Consult Reason/Comments: abnormal ekg, dizzinesss, hypotension Do you want consulting provider notified?: Yes Primary care physician: Shanti Dejesus - Discharge Diagnosis(es) (1) Acute kidney injury Status: Acute (2) Dehydration Status: Acute (3) Cardiomyopathy Status: Acute (4) Chronic systolic CHF (congestive heart failure), NYHA class 2 Status: Acute (5) Paroxysmal atrial fibrillation Status: Acute (6) Coronary artery disease Status: Acute (7) Defibrillator discharge Status: Acute Hospital Course: Dionicio Figueroa is a 58 yo M with PMH significant for CAD with stenting, cardiomyopathy, chronic systolic CHF, HTN and HLD who was sent to the ED from PCP clinic after complaining of dizziness and lightheadedness with borderline low BP. Pt denies any other symptoms and does not feel he had been overexerting himself or recently ill. On presentation his BP was initially 149/60, pulse 50, EKG with sinus rhythm with ventricular pacing, CXR and trop negative. Labs remarkable for Cr 1.7 from baseline 1.1 and lactic 2.2. Pt was given IVF and states his symptoms improved significantly after this. He has not experienced any further lightheadedness or malaise since his arrival to the hospital. Pt was admitted and given IVF. His acute kidney injury did resolve and he did not experience any further episodes of dizziness. The remainder of his home medications were continued. Pt was seen by Cardiology and his AICD was interrogated. He was cleared and is discharged home in stable condition and recommended to follow up with his PCP and electronics inspector. Patient Condition at Discharge: Fair Plan - Discharge Summary Discharge Rx Participant: No New Discharge Prescriptions: Continue Metoprolol Tartrate [Lopressor] 200 mg PO BID Omeprazole [PriLOSEC] 20 mg PO DAILY Nitroglycerin Sl Tabs [Nitrostat] 0.4 mg SUBLINGUAL Q5M PRN PRN Reason: Chest Pain Furosemide [Lasix] 20 mg PO QAM Digoxin [Lanoxin] 125 mcg PO QAM Potassium Chloride [K-Tab ER] 20 meq PO QAM Isosorbide Mononitrate ER [Imdur] 30 mg PO QAM Rosuvastatin Calcium [Crestor] 40 mg PO HS Lisinopril [Zestril] 5 mg PO DAILY Apixaban [Eliquis] 5 mg PO BID #60 tab Aspirin 81 mg PO DAILY #30 chew Methocarbamol [Robaxin] 1,000 mg PO TID 5 Days tab Amiodarone [Cordarone] 200 mg PO DAILY traMADol HCl [Ultram] 50 - 100 mg PO Q6H PRN PRN Reason: Pain Discharge Medication List Digoxin [Lanoxin] 125 mcg PO QAM 06/23/13 [History] Furosemide [Lasix] 20 mg PO QAM 06/23/13 [History] Metoprolol Tartrate [Lopressor] 200 mg PO BID 06/23/13 [History] Nitroglycerin Sl Tabs [Nitrostat] 0.4 mg SUBLINGUAL Q5M PRN 06/23/13 [History] Omeprazole [PriLOSEC] 20 mg PO DAILY 06/23/13 [History] Potassium Chloride [K-Tab ER] 20 meq PO QAM 06/23/13 [History] Isosorbide Mononitrate ER [Imdur] 30 mg PO QAM 10/12/15 [History] Lisinopril [Zestril] 5 mg PO DAILY 02/13/16 [History] Rosuvastatin Calcium [Crestor] 40 mg PO HS 02/13/16 [History] Apixaban [Eliquis] 5 mg PO BID #60 tab 02/16/16 [Rx] Aspirin 81 mg PO DAILY #30 chew 02/16/16 [Rx] Amiodarone [Cordarone] 200 mg PO DAILY 03/20/19 [History] Methocarbamol [Robaxin] 1,000 mg PO TID 5 Days tab 03/20/19 [Rx] traMADol HCl [Ultram] 50 - 100 mg PO Q6H PRN 04/01/19 [History] Follow up Appointment(s)/Referral(s): Shanti Dejesus MD [Primary Care Provider] - 1-2 days Discharge Disposition: HOME SELF-CARE
== END 2019-04-02 12:03 | disposition home or self-care (01) | DRG 641 ==
LOC: EC 09:26 → 2SICU 13:02
PROVIDERS: ADMIT Family Medicine; ATTEND Family Medicine
PROC: 4B02XTZ Measurement of Cardiac Defibrillator, External Approach (ICD-10-PCS; principal; 2019-04-02)
DX: E86.0 Dehydration (principal); N17.9 Acute kidney failure, unspecified; I50.22 Chronic systolic (congestive) heart failure; I11.0 Hypertensive heart disease with heart failure; I95.9 Hypotension, unspecified; E78.5 Hyperlipidemia, unspecified; I25.5 Ischemic cardiomyopathy; I48.0 Paroxysmal atrial fibrillation; I25.10 Atherosclerotic heart disease of native coronary artery without angina pectoris; I25.2 Old myocardial infarction; G89.29 Other chronic pain; M54.9 Dorsalgia, unspecified; M19.90 Unspecified osteoarthritis, unspecified site; K21.9 Gastro-esophageal reflux disease without esophagitis; R26.2 Difficulty in walking, not elsewhere classified; F17.200 Nicotine dependence, unspecified, uncomplicated; Z71.6 Tobacco abuse counseling; Z79.01 Long term (current) use of anticoagulants; Z79.82 Long term (current) use of aspirin; Z79.899 Other long term (current) drug therapy; Z95.810 Presence of automatic (implantable) cardiac defibrillator; Z95.5 Presence of coronary angioplasty implant and graft; Z98.1 Arthrodesis status; Z88.8 Allergy status to other drugs, medicaments and biological substances; Z82.3 Family history of stroke; Z82.49 Family history of ischemic heart disease and other diseases of the circulatory system
CPT/HCPCS: 36415; 71045; 80053; 80162; 83605; 83735; 84484; 85025; 85610; 85730; 96360; 99285

== ENCOUNTER → 2021-07-14 | Outpatient (CLI) | payer MEDICARE, OTHER ==
--- NOTE | 2021-07-14 18:07 | CONS ---
CONSULTATION DATE OF SERVICE: 07/14/2021 This 60-year-old gentleman has been evaluated in [facility] Center for his problems, which include difficulties initiating sleep and multiple awakenings from sleep. HISTORY OF PRESENT ILLNESS/SLEEP-WAKE EVALUATION: Patient's sleep schedule varies. It is usually from about 11 p.m. until around 5 a.m. The patient has difficulties falling asleep. He has a TV set in the bedroom. He wakes up from sleep with episodes of nocturia. He snores and feels that his mouth is dry when he wakes up. Positive history of restless leg symptoms. No history of hypnagogic hallucinations, sleep paralysis or cataplexy. In the morning the patient wakes up tired, falling asleep during the day. [place] Sleepiness Scale is 9. He has problems with concentration, irritability, anxiety, sexual dysfunction. PAST MEDICAL HISTORY: Positive for coronary artery disease, heart attack, CHF, hypertension, COPD, emphysema, back problems, GERD, BPH, hypothyroidism, abdominal aortic aneurysm. MEDICATIONS: Lisinopril 5 mg once a day, rosuvastatin 40 mg once a day, omeprazole 20 mg once a day, furosemide 20 mg once a day, aspirin 81 mg once a day, amiodarone once a day, digoxin 125 mcg once a day, isosorbide 30 mg once a day, nitroglycerin as needed, metoprolol 100 mg twice a day, Flovent inhaler twice a day, levothyroxine 25 once a day, ipratropium albuterol inhaler, Eliquis 5 mg twice a day. PAST SURGICAL HISTORY: Stent insertions to coronary artery, cardioversion and defibrillator insertion. SOCIAL HISTORY: Positive for smoking for 50 pack/years. Alcohol consumption once a week. REVIEW OF SYSTEMS: Difficulty initiating sleep, multiple awakenings from sleep. No fevers. No double vision. No recent chest pain. No shortness of breath. No abdominal pain. No bleeding episodes. No blood in the urine. No seizure episodes. FAMILY HISTORY: Hypertension, heart problems. PHYSICAL EXAMINATION: GENERAL: Pleasant gentleman without distress. VITAL SIGNS: BP 152/91, HR 44, RR 20, height 5 feet 10-1/2 inches, weight 192 pounds, body mass index 27.1, temperature 97.9, oxygen saturation at room air 96%. HEENT: PERRLA, EOMI, evaluation of oropharynx showed tongue protrudes midline. Extremely low position of soft palate; Mallampati IV. NECK: Supple, no JVD. Thyroid is not palpable. Neck is wide; 17 inches in circumference. LUNGS: Clear to percussion and to auscultation. Good air exchange. No wheezing or rhonchi. HEART: S1, S2 regular. No murmurs, gallops, or rubs. ABDOMEN: Soft and nontender. Bowel sounds are present. No organomegaly appreciated. EXTREMITIES: Some clubbing. No cyanosis. 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 Cranial nerves 2 to 7 intact. There is no fasciculation or atrophy. noted. No focal deficits observed. IMPRESSION: 1. Snoring, awakenings from sleep with a dry mouth and nocturia, extremely low position of soft palate, Mallampati IV, wide neck, 17 inches in circumference, episodes of sleepiness during the day; obstructive sleep apnea-hypopnea syndrome. 2. Restless leg symptoms. 3. Insomnia. 4. Coronary artery disease, status post myocardial infarction and insertion of stents. 5. History of congestive heart failure. 6. Status post ICD insertion. 7. History of smoking for more than 50 pack/years. 8. History of chronic obstructive pulmonary disease and emphysema. 9. Hypertension. 10.Gastroesophageal reflux disease. 11.History of back problems. 12.Hypothyroidism. 13.Benign prostatic hypertrophy. PLAN: 1. Polysomnography for evaluation of patient's breathing during sleep. 2. CPAP/BiPAP titration if sleep study confirms obstructive sleep apnea-hypopnea syndrome. 3. Preferable position during sleep on the side. 4. No driving if patient feels any sleepiness. 5. I will see patient for follow up visit to explain results of testing and following plan. Thank you very much for referring this patient for consultation. Sincerely, Dg Muniz MD, PhD, FAASM Diplomat of [place] [employer] Sleep Medicine Board of [place] [employer] Building Construction Ironworker of [facility] [place] MMSATISH / DIDI: [id number] /
== END | disposition home or self-care (01) ==
LOC: SLEEP 14:11
PROVIDERS: ATTEND Internal Medicine
DX: G47.33 Obstructive sleep apnea (adult) (pediatric) (principal); G25.81 Restless legs syndrome; G47.10 Hypersomnia, unspecified; I25.10 Atherosclerotic heart disease of native coronary artery without angina pectoris; Z86.79 Personal history of other diseases of the circulatory system; Z98.890 Other specified postprocedural states; Z87.09 Personal history of other diseases of the respiratory system
CPT/HCPCS: 99211

== ENCOUNTER → 2021-10-12 | Outpatient (CLI) | payer MEDICARE, OTHER ==
--- NOTE | 2021-10-12 14:46 | P.PN ---
Subjective DATE: 10/12/2021 FOLLOW UP VISIT. Patient returned to sleep center for follow-up visit to discuss results of the recent sleep test and following plan. I discuss results of polysomnogram with patient in details. Patient slept only for 2 hours and 17 minutes, which does not allowed to do proper conclusion for results of the test. No significant respiratory abnormalities have been documented during the sleep test although. Normal oxygenation. No significant periodic limb movements have been documented [place] sleepiness scale is 2 today. MEDICATIONS:1. Lisinopril 2. Crestor 3. Omeprazole 4. Aspirin 5. Amiodarone 6. D Alon 7. Nitroglycerin 8. Metoprolol 9. Levothyroxine During physical exam: GENERAL: A pleasant patient without any distress. VITAL SIGNS: BP 155/89, HR 68, RR 16 , weight 194, temperature 98.3, oxygen saturation at room air 98 . HEENT: PERRLA, EOMI. NECK: Supple. No JVD. LUNGS: Clear to percussion and to auscultation. Good air exchange. No wheezing or rhonchi. HEART: S1, S2 regular. ABDOMEN: Soft and nontender. EXTREMITIES: No clubbing or cyanosis. FIELD ARTILLERY BASIC: Awake, alert, and oriented x3. No focal deficit. Impressions: 1. No significant respiratory abnormalities during the polysomnogram, but patient slept only for about 2 hours which does not allowed to make reliable conclusion. 2. No significant periodic limb movements during the sleep test. 3. Coronary artery disease, status post heart attack and stent insertion. 4. History of CHF. 5. Status post ICD insertion. 6. History of COPD. 7. History of smoking for more than 50 pack years. 8. Hypertension. 9. Hypothyroidism. 10 BPH Plan: 1. We will proceed with home sleep apnea test for ablation of patient breathing during the sleep. 2. Sleep hygiene with regular time in bed for at least 8 hours. 3. Following plan after reading home sleep apnea test 4. Precautions related to driving. No driving if feel any sleepiness. Thank you very much for allowing me to participate in the management of your patient. Dg Muniz MD, PhD, FAASM. Diplomat of [place] [employer], Sleep Medicine Board by [place] [employer] Cart Pusher of [facility] [place]
== END ==
LOC: SLEEP 14:16
PROVIDERS: ATTEND Internal Medicine
DX: Z09 Encounter for follow-up examination after completed treatment for conditions other than malignant neoplasm (principal); I25.10 Atherosclerotic heart disease of native coronary artery without angina pectoris; Z95.5 Presence of coronary angioplasty implant and graft; I50.9 Heart failure, unspecified; J44.9 Chronic obstructive pulmonary disease, unspecified; I10 Essential (primary) hypertension; E03.9 Hypothyroidism, unspecified; N40.0 Benign prostatic hyperplasia without lower urinary tract symptoms; Z79.82 Long term (current) use of aspirin; Z88.8 Allergy status to other drugs, medicaments and biological substances; F17.200 Nicotine dependence, unspecified, uncomplicated

== ENCOUNTER → 2022-09-05 | Outpatient (CLI) | payer MEDICARE, OTHER ==
--- NOTE | 2022-09-06 13:23 | CT ---
EXAMINATION TYPE: CT lumbar spine wo con DATE OF EXAM: 09/05/2022 COMPARISON: None HISTORY: 61-year-old male M51.17, M47.817, LOW BACK PAIN, HX OF BACK SX TECHNIQUE: Contiguous axial scanning of the lumbar spine without IV contrast. Coronal and sagittal re constructions performed. CT DLP: 758.20 mGycm Automated exposure control for dose reduction was used. FINDINGS: Tiny hilar splenule. Fusiform aneurysm infrarenal abdominal aorta to 3.3 cm there are moderate atherosclerotic calcificati ons within the common iliac arteries. Degenerative bony ankylosis left SI joint and mild degenerative change right SI joint. There is straightening of the normal lumbar lordosis. Trace grade 1 retrolisthesis L2-L3. Remaining alignment is maintained. [facility] within the lower thoracic spine. Some nearly bridging anterior endplate spondylosis extends into the upper lumbar spine. Postsurgical change of L4-S1 posterior and interbody fusion. Mild to moderate degenerative disc disea se throughout with bulging discs. Some ligamentum flavum thickening is also present. Overall mild cathleen rowing of the spinal canal above the fusion L3-L4. Impression onto the ventral thecal sac at a few ot her levels but without significant spinal canal stenosis. Residual hyperostotic changes of diffuse levels. Additional facet arthropathy above the fusion up int o the upper lumbar spine. There is moderate bilateral neural foraminal stenosis at L5-S1. Lateral disc osteophyte complex towar ds both sides may abut the bilateral extraforaminal L5 nerve roots. On the left, additional moderate neuroforaminal stenosis at L3-L4 and mild at additional levels. On the right, additional moderate neural foraminal stenosis at L2-L3 and L3-L4. Mild additional level s. IMPRESSION: 1. STATUS POST L4-S1 POSTERIOR AND INTERBODY LUMBAR FUSION. 2. MILD TO MODERATE DEGENERATIVE DISC DISEASE THROUGHOUT WELL HYPERTROPHIC FACET ARTHROPATHY. D EGENERATIVE TRACE GRADE 1 RETROLISTHESIS L2-L3. 3. NO VERTEBRAL COMPRESSION COLLAPSE. 4. MILD OVERALL NARROWING OF THE SPINAL CANAL AT L3-L4. NO HIGH-GRADE CANAL COMPROMISE SEEN. 5. VARIABLE MILD TO MODERATE NEURAL FORAMINAL STENOSES OUTLINED ABOVE, PARTICULARLY AT L5-S1. LATE RAL DISC OSTEOPHYTE COMPLEXES AT L5-S1 PROMINENTLY ABOUT THE EXTRAFORAMINAL L5 NERVE ROOTS ON BOTH SI MANE. 6. A 3.3 cm infrarenal fusiform AAA. Appropriate follow-up recommended.
== END | disposition home or self-care (01) ==
LOC: RADCTMAIN 15:13
PROVIDERS: ATTEND Physical Medicine & Rehabilitation
DX: M51.17 Intervertebral disc disorders with radiculopathy, lumbosacral region (principal); M47.27 Other spondylosis with radiculopathy, lumbosacral region; M43.16 Spondylolisthesis, lumbar region; M99.73 Connective tissue and disc stenosis of intervertebral foramina of lumbar region; I71.40 Abdominal aortic aneurysm, without rupture, unspecified
CPT/HCPCS: 72131

== ENCOUNTER 2023-01-06 13:10 | Emergency (ER) | payer MEDICARE, OTHER ==
[2023-01-06 13:46] VITALS: RESP 18; TEMP 98.1
--- NOTE | 2023-01-06 14:23 | ED ---
General Adult HPI - General Source: patient, RN notes reviewed, old records reviewed Mode of arrival: ambulatory Limitations: no limitations <Ruy Lane - Last Filed: 01/06/23 15:03> <Jan Kim - Last Filed: 01/06/23 16:43> - General Chief complaint: Chest Pain Stated complaint: Pacemaker Alarm went off Time Seen by Provider: 01/06/23 13:45 - History of Present Illness Initial comments: This is a 62-year-old male who presents emergency Department with a pacemaker defibrillator. Patient states his device that he has at home that transmits his pacemaker information that up and told him to call a physician he called the facility they told him that they did not see any abnormality however after getti ng off the phone and started blinking again and stating to call the physician so he decided come to the emergency department. Patient has been completely asymptomatic. Patient denies chest pain palpitations difficulty breathing or shortness of breath. Patient states he did not hear any beeping from the pacemaker and there was no defibrillation given. Patient states he didn't know what else to do because his device that he has a home was blinking to call someone and when he did they told her there wasn't a problem but he continued to blink will he came here (Ruy Lane) - Related Data Home Medications Medication Instructions Recorded Confirmed Digoxin [Lanoxin] 125 mcg PO QAM 06/23/13 04/01/19 Furosemide [Lasix] 20 mg PO QAM 06/23/13 04/01/19 Metoprolol Tartrate [Lopressor] 200 mg PO BID 06/23/13 04/01/19 Nitroglycerin Sl Tabs [Nitrostat] 0.4 mg SUBLINGUAL Q5M PRN 06/23/13 04/01/19 Omeprazole [PriLOSEC] 20 mg PO DAILY 06/23/13 04/01/19 Potassium Chloride [K-Tab ER] 20 meq PO QAM 06/23/13 04/01/19 Isosorbide Mononitrate ER [Imdur] 30 mg PO QAM 10/12/15 04/01/19 Rosuvastatin Calcium [Crestor] 40 mg PO HS 02/13/16 04/01/19 lisinopriL [Zestril] 5 mg PO DAILY 02/13/16 04/01/19 Amiodarone [Cordarone] 200 mg PO DAILY 03/20/19 04/01/19 traMADol HCl [Ultram] 50 - 100 mg PO Q6H PRN 04/01/19 04/01/19 Previous Rx's Medication Instructions Recorded Apixaban [Eliquis] 5 mg PO BID #60 tab 02/16/16 Aspirin 81 mg PO DAILY #30 chew 02/16/16 methocarbamoL [Robaxin] 1,000 mg PO TID 5 Days tab 03/20/19 Allergies Allergy/AdvReac Type Severity Reaction Status Date / Time ranitidine HCl [From Zantac] Allergy Itching Verified 01/06/23 16:14 Review of Systems ROS Other: All systems not noted in ROS Statement are negative. <Ruy Lane - Last Filed: 01/06/23 15:03> ROS Other: All systems not noted in ROS Statement are negative. <Jan Kim - Last Filed: 01/06/23 16:43> ROS Statement: Those systems with pertinent positive or pertinent negative responses have been documented in the HPI. Past Medical History Past Medical History: Atrial Fibrillation, Coronary Artery Disease (CAD), Chest Pain / Angina, GERD/Reflux, Hyperlipidemia, Hypertension, Myocardial Infarction ([place]), Musculoskeletal Disorder, Osteoarthritis (OA) Additional Past Medical History / Comment(s): Ischemic cardiomyopathy, arthritis in multiple joints, chronic back pain, unable to walk long distances d/t back problems Last Myocardial Infarction Date:: 2007 History of Any Multi-Drug Resistant Organisms: None Reported Past Surgical History: AICD, Heart Catheterization, Heart Catheterization With Stent Additional Past Surgical History / Comment(s): 10/20/15 posterior lateral decompression and fusion transforaminal lumbar interbody fusion L4-5, L5-s1, AICD: [employer], MOD#[id number], [id number], DFTs, 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 Past Anesthesia/Blood Transfusion Reactions: No Reported Reaction Date of Last Stent Placement:: 2011 Type of Cardiac Device: AICD Device Placement Date:: 2012 Past Psychological History: No Psychological Hx Reported Smoking Status: Current every day smoker Past Alcohol Use History: Occasional Past Drug Use History: None Reported - Past Family History Mother Family Medical History: No Reported History Additional Family Medical History / Comment(s): Mother of a brain aneurysm rupture in her 50's Father Family Medical History: CVA/TIA Additional Family Medical History / Comment(s): Father of a CVA. He one year later in a snf. <Ruy Lane - Last Filed: 01/06/23 15:03> General Exam Limitations: no limitations <Ruy Lane - Last Filed: 01/06/23 15:03> - General Exam Comments Initial Comments: GENERAL: Patient is well-developed and well-nourished. Patient is nontoxic and well- hydrated and is in no acute distress. ENT: Neck is soft and supple. No significant lymphadenopathy is noted. Oropharynx is clear. Moist mucous membranes. Neck has full range of motion without eliciting any pain. EYES: The sclera were anicteric and conjunctiva were pink and moist. Extraocular movements were intact and pupils were equal round and reactive to light. Eyelids were unremarkable. PULMONARY: Unlabored respirations. Good breath sounds bilaterally. No audible rales rhonchi or wheezing was noted. CARDIOVASCULAR: There is a regular rate and rhythm without any murmurs gallops or rubs. ABDOMEN: Soft and nontender with normal bowel sounds. SKIN: Skin is clear with no lesions or rashes and otherwise unremarkable. NEUROLOGIC: Patient is alert and oriented x3. Cranial nerves II through XII are grossly intact. Motor and sensory are also intact. Normal speech, volume and content. Symmetrical smile. MUSCULOSKELETAL: Normal extremities with adequate strength and full range of motion. No lower extremity swelling or edema. No calf tenderness. LYMPHATICS: No significant lymphadenopathy is noted PSYCHIATRIC: Normal psychiatric evaluation. (Ruy Lane) Course Vital Signs 01/06/23 13:35 Temperature 98.1 F Pulse Rate 44 L Respiratory 18 Rate Blood Pressure 129/78 O2 Sat by Pulse 97 Oximetry Medical Decision Making - Lab Data Result diagrams: 01/06/23 13:58 <Ruy Lane - Last Filed: 01/06/23 15:03> - Lab Data Result diagrams: 01/06/23 13:58 01/06/23 13:58 <Jan Kim - Last Filed: 01/06/23 16:43> - Medical Decision Making EKG was interpreted by myself. EKG shows atrial fibrillation at 72 bpm QRS is 162 QT interval 472 QTC is 496. Patient's EKG shows a right bundle branch block. Was pt. sent in by a medical professional or institution (DAVID Medina, INFORMATION RESOURCES DIRECTOR, urgent care, hospital, or snf...) When possible be specific @ -No Did you speak to anyone other than the patient for history (EMS, parent, family, police, friend...)? What history was obtained from this source @ -No Did you review nursing and triage notes (agree or disagree)? Why? @ -I reviewed and agree with nursing and triage notes Were old charts reviewed (outside hosp., previous admission, EMS record, old EKG, old radiological studies, urgent care reports/EKG's, snf records)? Report findings @ -No old charts were reviewed Differential Diagnosis (chest pain, altered mental status, abdominal pain women, abdominal pain men, vaginal bleeding, weakness, fever, dyspnea, syncope, headache, dizziness, GI bleed, back pain, seizure, CVA, palpatations, mental health, musculoskeletal)? @ -not applicable EKG interpreted by me (3pts min.). @ -As above X-rays interpreted by me (1pt min.). @ -None done CT interpreted by me (1pt min.). @ -None done U/S interpreted by me (1pt. min.). @ -None done What testing was considered but not performed or refused? (CT, X-rays, U/S, labs)? Why? @ -None What meds were considered but not given or refused? Why? @ -None Did you discuss the management of the patient with other professionals (davey diaz i.e. DAVID Medina, INFORMATION RESOURCES DIRECTOR, lab, RT, psych nurse, criminal justice social worker, juice mixer, teacher, hospital chief financial officer, rn field case manager)? Give summary @ -I spoke with the wholesale representative from [employer] Was smoking cessation discussed for >3mins.? @ -No Was critical care preformed (if so, how long)? @ -No Were there social determinants of health that impacted care today? How? (Homelessness, low income, unemployed, alcoholism, drug addiction, transportation, low edu. Level, literacy, decrease access to med. care, group home, rehab)? @ -No Was there de-escalation of care discussed even if they declined (Discuss DNR or withdrawal of care, Hospice)? DNR status @ -No What co-morbidities impacted this encounter? (DM, HTN, Smoking, COPD, CAD, Cancer, CVA, ARF, Chemo, Hep., AIDS, mental health diagnosis, sleep apnea, morbid obesity)? @ -None Was patient admitted / discharged? Hospital course, mention meds given and route, prescriptions, significant lab abnormalities, going to OR and other pertinent info. @ -Spoke with the wholesale representative from [employer] and they indicated that there was no event occurring today when he had the pacemaker interrogated. Patient remained a symptomatic. Dr. Kim be taking over the care of this patient at 3 PM. (Ruy Lane) Patient was endorsed to me by Dr. Lane at our shift change pending laboratory work. Patient is resting comfortably without any symptoms. His lab work is essentially within normal limits patient will be discharged and follow-up with Dr. Connolly cardiology this coming week. His monitor does demonstrate atrial fibrillation patient is aware of this. He's had no shocks no dizziness or lightheadedness. (Jan Kim) - Lab Data Lab Results 01/06/23 01/06/23 01/06/23 Range/Units 13:58 13:58 13:58 WBC 8.8 (3.8-10.6) k/uL RBC 4.41 (4.30-5.90) m/uL Hgb 15.5 (13.0-17.5) gm/dL Hct 44.9 (39.0-53.0) % MCV 101.8 H (80.0-100.0) fL MCH 35.1 H (25.0-35.0) pg MCHC 34.5 (31.0-37.0) g/dL RDW 13.1 (11.5-15.5) % Plt Count 143 L (150-450) k/uL MPV 10.5 Neutrophils % 61 % Lymphocytes % 29 % Monocytes % 6 % Eosinophils % 2 % Basophils % 0 % Neutrophils # 5.3 (1.3-7.7) k/uL Lymphocytes # 2.5 (1.0-4.8) k/uL Monocytes # 0.5 (0-1.0) k/uL Eosinophils # 0.2 (0-0.7) k/uL Basophils # 0.0 (0-0.2) k/uL Macrocytosis Slight Sodium 138 (137-145) mmol/L Potassium 4.4 (3.5-5.1) mmol/L Chloride 102 (98-107) mmol/L Carbon Dioxide 30 (22-30) mmol/L Anion Gap 6 mmol/L BUN 20 (9-20) mg/dL Creatinine 1.08 (0.66-1.25) mg/dL Est GFR (CKD-EPI)AfAm 84 (>60 ml/min/1.73 sqM) Est GFR (CKD-EPI)NonAf 73 (>60 ml/min/1.73 sqM) Glucose 120 H (74-99) mg/dL Calcium 9.3 (8.4-10.2) mg/dL Magnesium 2.0 (1.6-2.3) mg/dL Total Bilirubin 1.1 (0.2-1.3) mg/dL AST 44 (17-59) U/L ALT 39 (4-49) U/L Alkaline Phosphatase 119 (38-126) U/L Troponin I <0.012 (0.000-0.034) ng/mL Total Protein 6.8 (6.3-8.2) g/dL Albumin 3.8 (3.5-5.0) g/dL Disposition <Ruy Lane - Last Filed: 01/06/23 15:03> Is patient prescribed a controlled substance at d/c from ED?: No Decision Date: 01/06/23 Decision Time: 16:43 <Jan Kim - Last Filed: 01/06/23 16:43> Clinical Impression: Atrial dysrhythmia, Cardiac defibrillator in place Disposition: HOME SELF-CARE Condition: Good Instructions (If sedation given, give patient instructions): A-fib (Atrial Fibrillation) (ED), Implantable Cardioverter Defibrillator (DC) Referrals: Yesica Edmond DO [Primary Care Provider] - 1-2 days Jaya Connolly MD [STAFF PHYSICIAN] - 1-2 days
[2023-01-06 14:56] LABS: Basophils % (A) 0 %; Eosinophils # (A) 0.2 k/uL (0-0.7); Eosinophils % (A) 2 %; HCT 44.9 % (39.0-53.0); HGB 15.5 gm/dL (13.0-17.5); Lymphocytes # (A) 2.5 k/uL (1.0-4.8); Lymphocytes % (A) 29 %; MCH 35.1 pg (25.0-35.0); MCHC 34.5 g/dL (31.0-37.0); MCV 101.8 fL (80.0-100.0); Macrocytosis Slight; Mean Platelet Volume 10.5; Monocytes # (A) 0.5 k/uL (0-1.0); Monocytes % (A) 6 %; Neutrophils # (A) 5.3 k/uL (1.3-7.7); Neutrophils % (A) 61 %; Platelet Count 143 k/uL (150-450); RBC 4.41 m/uL (4.30-5.90); RDW 13.1 % (11.5-15.5); WBC 8.8 k/uL (3.8-10.6)
[2023-01-06 15:05] LABS: ALT 39 U/L (4-49); AST 44 U/L (17-59); African American GFR (CKD) 84 (>60 ml/min/1.73 sqM); Albumin 3.8 g/dL (3.5-5.0); Alkaline Phosphatase 119 U/L (38-126); Anion Gap 6 mmol/L; Blood Urea Nitrogen 20 mg/dL (9-20); Calcium 9.3 mg/dL (8.4-10.2); Carbon Dioxide 30 mmol/L (22-30); Chloride 102 mmol/L (98-107); Glucose 120 mg/dL (74-99); Non-African American GFR(CKD) 73 (>60 ml/min/1.73 sqM); Potassium 4.4 mmol/L (3.5-5.1); Sodium 138 mmol/L (137-145); Total Bilirubin 1.1 mg/dL (0.2-1.3); Total Protein 6.8 g/dL (6.3-8.2)
[2023-01-06 16:58] VITALS: BP 112/87; PULSE 54
== END 2023-01-06 16:52 | disposition home or self-care (01) ==
LOC: EC 13:10
DX: D65 Disseminated intravascular coagulation [defibrination syndrome] (principal); I49.9 Cardiac arrhythmia, unspecified; I48.91 Unspecified atrial fibrillation; I25.10 Atherosclerotic heart disease of native coronary artery without angina pectoris; I10 Essential (primary) hypertension; K21.9 Gastro-esophageal reflux disease without esophagitis; E78.5 Hyperlipidemia, unspecified; I21.9 Acute myocardial infarction, unspecified; M19.90 Unspecified osteoarthritis, unspecified site; F17.200 Nicotine dependence, unspecified, uncomplicated; Z79.899 Other long term (current) drug therapy; Z88.8 Allergy status to other drugs, medicaments and biological substances
CPT/HCPCS: 36415; 80053; 83735; 84484; 85025; 93005; 99285

== ENCOUNTER → 2024-08-11 | Outpatient (CLI) | payer MEDICARE, OTHER ==
[2024-08-11 15:22] LABS: Anion Gap 10.00 mmol/L (4.00-12.00); Blood Urea Nitrogen 9.5 mg/dL (9.0-27.0); Carbon Dioxide 27.0 mmol/L (21.6-31.8); Chloride 107 mmol/L (96-109); Potassium 4.2 mmol/L (3.5-5.5); Sodium 144 mmol/L (135-145)
[2024-08-11 16:10] LABS: HCT 46.2 % (39.6-50.0); HGB 14.8 g/dL (13.0-17.0); MCH 33.4 pg (27.0-32.0); MCHC 32.0 g/dL (32.0-37.0); MCV 104.3 FL (80.0-97.0); NRBC Per 100 WBC 0 X 10*3/uL (0.00-0.01); Platelet Count 137 X 10*3/uL (140-440); RBC 4.43 X 10*6/uL (4.40-5.60); RDW 13.3 % (11.5-14.5); WBC 8.06 X 10*3/uL (4.50-10.00)
== END | disposition home or self-care (01) ==
LOC: LABPAT 11:35
PROVIDERS: ATTEND Internal Medicine Clinical Cardiac Electrophysiology
DX: Z01.812 Encounter for preprocedural laboratory examination (principal); I25.5 Ischemic cardiomyopathy; I48.0 Paroxysmal atrial fibrillation; I50.22 Chronic systolic (congestive) heart failure
CPT/HCPCS: 80051; 82565; 84520; 85027

== ENCOUNTER 2024-08-18 12:31 | Day surgery (SDC) | payer MEDICARE, OTHER ==
[2024-08-14 10:18] VITALS: BMI 25.7
[~2024-08-18 12:31] MED LIST: LACTATED RINGERS 1,000 ML IV SCH; SODIUM CHLORIDE 0.9% 1,000 ML IV SCH; ceFAZolin 1 GM in SODIUM CHLORIDE 0.9% IRRIG BTL 250 ML IRRIGATION PRN
[2024-08-18 13:27] VITALS: RESP 16
[2024-08-18] MEDS: SODIUM CHLORIDE 0.9% 1,000 ML IV SCH (13:30)
[2024-08-18] MEDS: IV FLUID CONTINUATION 1,000 ML IV ONE (13:31)
[2024-08-18] MEDS ORDERED: VANCOMYCIN IV PER PHARMACY 1 EACH MISC MISCELLANE STA (14:36)
[2024-08-18] MEDS ORDERED: VANCOMYCIN 1,250 MG in SODIUM CHLORIDE 0.9% 250 ML IVPB ONE (14:45)
[2024-08-18] MEDS ORDERED: PROPOFOL 10 MG/ML 20 ML VIAL IV ONE (14:47)
[2024-08-18] MEDS ORDERED: fentaNYL (PF) 50 MCG/ML 2 ML AMP ONE (14:47)
[2024-08-18] MEDS ORDERED: LIDOCAINE 1% INJ 10MG/ML (20 ML MDV) ONE (14:47)
[2024-08-18] MEDS ORDERED: ACETAMINOPHEN TAB 325 MG TAB PO PRN (16:20)
--- NOTE | 2024-08-18 16:30 | P.EPPROC ---
- EP Procedure Note Electrophysiology Procedure Note: Diagnosis Cardiomyopathy, chronic, ischemic in nature, known CAD Congestive heart failure, systolic class II with severe LV dysfunction ejection fraction 20-25% On guideline directed medical treatment guideline directed Single-chamber ICD in situ, device at [facility] Procedure: Single ICD generator change Check Processor: Dr. Garrison Result: Single chamber ICD generator change DFT at a below 10 J, high-voltage impedance 76 ohms Chronic [employer] lead functioning normally RV ICD lead: [employer] lead in situ. Pacing threshold 1.8 V at 0.5 ms, R waves 9 mV and pacing impedance 360 ohms High-voltage impedance 76 ohms RV to Can ICD generator. Old [employer] device explanted. [place], VR single-chamber ICD implanted Procedure details: Patient was brought to the EP lab in a fasting state. Written informed consent was obtained prior to the procedure. Options, pros and cons, benefits and risks and complications discussed with patient in detail prior to the procedure (shared decision making document, from [facility]). Importance of continuing medical treatment emphasized. Alternatives discussed. Patient would like to proceed with ICD generator change The left pectoral area was prepped and draped as a protocol. IV antibiotics administered 1% lidocaine was used for local anesthesia. A 4 cm incision was made parallel to the deltopectoral groove, about 1.5 cm medial to it. The incision was carried down to the level of the pectoralis muscle and the subfascial pocket was made. Hemostasis was assured. Cinefluoroscopy of the original pocket revealed a coiled lead just under the clavicle. Therefore, care was taken not to reverse this coil, embedded in the pectoralis muscle/fascia. However care was taken that the curvature of the lead was maintained when placing the new ICD can in the pocket. Antibiotic pouch placed and the wound was closed in 3 layers and dressed per protocol. This was confirmed on cinefluoroscopy of the pocket Lead connected to the ICD generator. Wound closed in 3 layers and dressed per protocol ICD was interrogated and programmed. Appropriate pacing parameters, antitachycardia therapies with antitachycardia pacing cardioversion defibrillations programmed. Patient tolerated the procedure well without any acute complications. See scanned device report in EMR for lead details Defibrillation level testing Ventricular fibrillation was induced and appropriately detected at least se nsitivity and successfully internally defibrillated with a 10 J shock, anode configuration at least sensitivity. Successful defibrillation at 10 J. No post shock noise High-voltage impedance 76 ohms and charge time 1.9 seconds Device was then programmed according to the [employer] programming with appropriate antitachycardia pacing cardioversion and defibrillation
[2024-08-18] MEDS ORDERED: ACETAMINOPHEN IV (For NPO) 1,000 MG in EMPTY BAG 1 BAG IVPB ONE (18:00)
[2024-08-18] MEDS: IPRATROPIUM-ALBUTEROL 3 ML NEB INHALATION SCH (19:45)
[2024-08-18] MEDS ORDERED: ATORVASTATIN 80 MG TAB PO SCH (21:00)
[2024-08-18] MEDS ORDERED: METOPROLOL TARTRATE 50 MG TAB PO SCH (21:00)
[2024-08-18] MEDS ORDERED: APIXABAN 5 MG TAB PO SCH (21:00)
[2024-08-18 21:25] VITALS: BP 147/81; TEMP 97.1
[2024-08-18 21:55] VITALS: PULSE 55
[2024-08-19] MEDS ORDERED: LEVOTHYROXINE 25 MCG TAB PO SCH (06:30)
[2024-08-19] MEDS ORDERED: PANTOPRAZOLE 40 MG TABLET PO SCH (07:30)
[2024-08-19] MEDS ORDERED: AMIODARONE 200 MG TAB PO SCH (09:00)
[2024-08-19] MEDS ORDERED: POTASSIUM CITRATE 10 MEQ TABLET.ER PO SCH (09:00)
[2024-08-19] MEDS ORDERED: ASPIRIN 81 MG PO SCH (09:00)
[2024-08-19] MEDS ORDERED: FUROSEMIDE 20 MG TAB PO SCH (09:00)
[2024-08-19] MEDS ORDERED: ISOSORBIDE MONONITRATE ER 30 MG TAB.ER.24H PO SCH (09:00)
[2024-08-21] MEDS ORDERED: LEVOTHYROXINE 50 MCG TAB PO SCH (06:30)
== END 2024-08-18 21:59 | disposition home or self-care (01) ==
LOC: CATHEP 12:31 → 6NMEDSUR 16:25 → CATHEP 21:59
PROVIDERS: ATTEND Internal Medicine Clinical Cardiac Electrophysiology
DX: T82.111A Breakdown (mechanical) of cardiac pulse generator (battery), initial encounter (principal); I48.0 Paroxysmal atrial fibrillation; I11.0 Hypertensive heart disease with heart failure; I50.22 Chronic systolic (congestive) heart failure; I49.01 Ventricular fibrillation; I25.5 Ischemic cardiomyopathy; I47.19 Other supraventricular tachycardia; I25.10 Atherosclerotic heart disease of native coronary artery without angina pectoris; I25.2 Old myocardial infarction; Z95.5 Presence of coronary angioplasty implant and graft; E11.9 Type 2 diabetes mellitus without complications; E78.00 Pure hypercholesterolemia, unspecified; K21.9 Gastro-esophageal reflux disease without esophagitis; M19.90 Unspecified osteoarthritis, unspecified site; F17.210 Nicotine dependence, cigarettes, uncomplicated; Z79.01 Long term (current) use of anticoagulants; Z79.82 Long term (current) use of aspirin; Z79.51 Long term (current) use of inhaled steroids; Z79.890 Hormone replacement therapy; Z79.899 Other long term (current) drug therapy; Z88.8 Allergy status to other drugs, medicaments and biological substances; Z82.49 Family history of ischemic heart disease and other diseases of the circulatory system
CPT/HCPCS: 94640; 93641; 33262; C1722; J0690; J2003; J3010; J2704